=== PATIENT | male | born 1945 | race Caucasian/White ===

== ENCOUNTER 2016-03-04 23:47 | Observation (INO) | payer BC ==
[~2016-03-04] VITALS: Ht 175.3 cm; Wt 111.3 kg
[~2016-03-04 23:47] MED LIST: ALL100 PO; ASPI81TA21 PO; CNT PO; CRG3125 PO; HYDR12.56 PO; LPT/20 PO; NTRGSL/4 UT
[2016-03-05] VITALS (8 sets, daily range): BP systolic 116–177; BP diastolic 43–94; PULSE 49–63; TEMP 36.4–36.7; O2SAT 93–95; Ht 175.3 cm; Wt 111.3 kg
[2016-03-05] MEDS ORDERED: ASPIRIN 81 MG CHEW PO STA
[2016-03-05] MEDS ORDERED: SODIUM CHLORIDE 0.9% 500ML 500 ML IV STA
[2016-03-05 00:13] LABS: BASO % 1.4 %; BASO ABS # 0.09 K/uL (0-0.2); COMPLETE YES; HEMATOCRIT 48.4 % (42-52); IG% 0.2 %; LYMPH % 33.6 %; LYMPH ABS # 2.16 K/uL (1.2-3.4); MEAN CELL VOLUME 82.5 fL (80-100); MEAN CORPUSCULAR HGB CONC 36.4 g/dl (32-36); MEAN PLATELET VOLUME 11.3 fL (7.4-10.4); MONO % 8.4 %; NEUT % 52.4 %; PLATELET COUNT 200 K/uL (130-400); RED BLOOD COUNT 5.87 M/uL (4.7-6.1); WHITE BLOOD COUNT 6.43 K/uL (4.8-10.8)
[2016-03-05] MEDS: NITROGLYCERIN 0.4 MG SL PER TAB CHARGE SL PRN ×2 (00:13→00:18)
[2016-03-05 00:23] LABS: PROTHROMBIN TIME (PATIENT) 10.5 SECONDS (9.0-12.0)
[2016-03-05] MEDS ORDERED: NITROGLYCERIN OINT 2% 1GM PACKET EXT ONE (00:30)
--- NOTE | 2016-03-05 00:34 | EMERGENCY ROOM VISIT NOTE ---
History Report prepared by Carley: Sierra Mishra Under the Supervision of: Carlee KeyO. First contact with patient: 23:53 Chief Complaint: CHEST PAIN Stated Complaint: CHEST PAIN History of Present Illness The patient is a 70 year old male who presents to the Emergency Room with complaints of constant left sided chest pain for the past 3 hours. He rates his pain as a 6/10 in severity. He denies the pain radiating into his neck or back. It does not worsen with breathing, movement, or palpation. The patient denies doing anything unusual today. He rode in the car to [facility] in [place] and then came home and did some work in the barn. The patient denies shortness of breath , nausea, vomiting, abdominal pain, and any leg pain or swelling. He has a history of CO with triple bypass. He did not use any nitro today or take any aspirin. He has had a stress test within the past year. Source of History: patient Onset: 3 hours ago Position: chest (left) Symptom Intensity: 6/10 Timing: constant Modifying Factors (Worsening): other (none) Associated Symptoms: No SOB, No abdominal pain, No nausea, No vomiting Note: Pt denies leg pain or swelling. Review of Systems See HPI for pertinent positives & negatives. A total of 10 systems reviewed and were otherwise negative. Past Medical & Surgical Medical Problems: (1) CAD (coronary artery disease) (2) History of cellulitis (3) Hx MRSA infection (4) Hypertension (5) Kidney stones Surgical Problems: (1) S/P CABG (coronary artery bypass graft) Family History FH: heart disease Hypertension Social History Smoking Status: Never Smoker Alcohol Use: none Drug Use: none Marital Status: Housing Status: lives with family Occupation Status: retired Current/Historical Medications Scheduled Aspirin Enteric Coated (Ecotrin Or Generic), 81 MG PO DAILY Carvedilol (Carvedilol), 3.125 MG PO BID Levothyroxine Sodium (Levothyroxine Sodium), 50 MCG PO DAILY Losartan Potassium (Cozaar), 50 MG PO DAILY Multiple Vitamins W/ Minerals (Centrum Silver), 1 DOSE PO DAILY Nitroglycerin (Nitrostat), 0.4 MG UT PRN Omeprazole (Prilosec), 40 MG PO DAILY Pravastatin (Pravachol ), 20 MG PO DAILY Scheduled PRN Allopurinol (Allopurinol), 100 MG PO DIRECTED PRN for gout Allergies Coded Allergies: Uncoded Nonscreenable Allergen (Verified Allergy, Unknown, HIVES FROM CLOROX CLEANUP, 03/05/16) Propofol (Verified Adverse Reaction, Severe, EXTREME AGITATION, 03/05/16) Physical Exam Vital Signs Date Time Temp Pulse Resp B/P Pulse Ox O2 Delivery O2 Flow Rate FiO2 03/05/16 01:41 54 18 179/86 95 Room Air 03/05/16 00:04 Room Air 03/05/16 00:04 36.5 58 18 200/95 96 Room Air 03/05/16 00:03 63 Physical Exam GENERAL: Patient is awake, alert, somewhat anxious appearing. EYES: The conjunctivae are clear. The pupils are round and reactive. EARS, NOSE, MOUTH AND THROAT: The nose is without any evidence of any deformity. Mucous membranes are moist tongue is midline NECK: The neck is nontender and supple. RESPIRATORY: Normal respiratory effort is noted. Lungs are diminished at the bases but no definite wheezing rhonchi or rales CARDIOVASCULAR: Regular rate and rhythm noted there no murmurs rubs or gallops normal S1 normal S2 GASTROINTESTINAL: The abdomen is soft. Bowel sounds are present in all quadrants. Abdomen is nontender MUSCULOSKELETAL/EXTREMITIES: There is no evidence of gross deformity full range of motion is noted in the hips and shoulders. Trace pedal edema bilaterally. SKIN: There is no obvious evidence of any rash. There are no petechiae, pallor or cyanosis noted. NEUROLOGIC: Patient is awake alert and oriented x3 strength is symmetric patellar reflexes are 2+ bilaterally Medical Decision & Procedures ER Provider Diagnostic Interpretation: Chest x-ray as interpreted myself reveals cardiomegaly, no definite infiltrate, no free air, no significant change from 04/04/12. Repeat ECG reveals NSR at 75, no ectopy, persistence of ST abnormalities, no change from earlier tracing. Laboratory Results 03/05/16 00:01 Red Blood Count 5.87, Mean Corpuscular Volume 82.5, Mean Corpuscular Hemoglobin 30.0, Mean Corpuscular Hemoglobin Concent 36.4, Mean Platelet Volume 11.3, Neutrophils (%) (Auto) 52.4, Lymphocytes (%) (Auto) 33.6, Monocytes (%) (Auto) 8.4, Eosinophils (%) (Auto) 4.0, Basophils (%) (Auto) 1.4, Neutrophils # (Auto) 3.37, Lymphocytes # (Auto) 2.16, Monocytes # (Auto) 0.54, Eosinophils # (Auto) 0.26, Basophils # (Auto) 0.09 03/05/16 00:01 Test 03/05/16 00:01 White Blood Count 6.43 K/uL (4.8-10.8) Red Blood Count 5.87 M/uL (4.7-6.1) Hemoglobin 17.6 g/dL (14.0-18.0) Hematocrit 48.4 % (42-52) Mean Corpuscular Volume 82.5 fL (80-100) Mean Corpuscular Hemoglobin 30.0 pg (25-34) Mean Corpuscular Hemoglobin Concent 36.4 g/dl (32-36) Platelet Count 200 K/uL (130-400) Mean Platelet Volume 11.3 fL (7.4-10.4) Neutrophils (%) (Auto) 52.4 % Lymphocytes (%) (Auto) 33.6 % Monocytes (%) (Auto) 8.4 % Eosinophils (%) (Auto) 4.0 % Basophils (%) (Auto) 1.4 % Neutrophils # (Auto) 3.37 K/uL (1.4-6.5) Lymphocytes # (Auto) 2.16 K/uL (1.2-3.4) Monocytes # (Auto) 0.54 K/uL (0.11-0.59) Eosinophils # (Auto) 0.26 K/uL (0-0.5) Basophils # (Auto) 0.09 K/uL (0-0.2) RDW Standard Deviation 39.2 fL (36.4-46.3) RDW Coefficient of Variation 13.1 % (11.5-14.5) Immature Granulocyte % (Auto) 0.2 % Immature Granulocyte # (Auto) 0.01 K/uL (0.00-0.02) Prothrombin Time 10.5 SECONDS (9.0-12.0) Prothromb Time International Ratio 1.0 (0.9-1.1) Activated Partial Thromboplast Time 26.4 SECONDS (21.0-31.0) Partial Thromboplastin Ratio 1.0 Anion Gap 9.0 mmol/L (3-11) Est Creatinine Clear Calc Drug Dose 68.4 ml/min Estimated GFR () 65.0 Estimated GFR (Non- 56.1 BUN/Creatinine Ratio 16.7 (10-20) Calcium Level 8.7 mg/dl (8.5-10.1) Total Bilirubin 0.6 mg/dl (0.2-1) Direct Bilirubin 0.1 mg/dl (0-0.2) Aspartate Amino Transf (AST/SGOT) 29 U/L (15-37) Alanine Aminotransferase (ALT/SGPT) 46 U/L (12-78) Alkaline Phosphatase 55 U/L (45-117) Total Creatine Kinase 176 U/L (39-308) Creatine Kinase MB 2.4 ng/ml (0.5-3.6) Creatine Kinase MB Ratio 1.4 (0-3.0) Troponin I < 0.015 ng/ml (0-0.045) Pro-B-Type Natriuretic Peptide 116 pg/ml (0-900) Total Protein 7.2 gm/dl (6.4-8.2) Albumin 4.0 gm/dl (3.4-5.0) Lipase 146 U/L (73-393) Chemistry Specimen Hemolysis Laboratory results per my review. Medications Administered Medications (Trade) Dose Ordered Sig/Corrie Route Start Time Stop Time Status Last Admin Dose Admin Aspirin (Aspirin Chew) 324 mg NOW STAT PO 03/05/16 00:00 03/05/16 00:03 DC 03/05/16 00:14 324 MG Nitroglycerin 0.4 mg 0.4 mg Q5M PRN SL 03/05/16 00:00 03/05/16 01:24 DC 03/05/16 00:18 0.4 MG Sodium Chloride (Nss 500ml) 500 ml @ 999 mls/hr Q31M STAT IV 03/05/16 00:00 03/05/16 00:30 DC 03/05/16 00:00 999 MLS/HR Nitroglycerin (Nitroglycerin 2% Oint) 1 inch NOW ONCE EXT 03/05/16 00:30 03/05/16 00:31 DC 03/05/16 00:32 1 INCH ECG Indication: chest pain Rate (beats per minute): 58 Rhythm: sinus bradycardia Findings: LBBB, no ectopy Comparison ECG Date: 04/06/2012 Change: LBBB is new compared to previous. ED Course 2353: The patient was evaluated in room A10. A complete history and physical examination were performed. 0000: NSS 500 ml @ 999 mls/hr IV, Nitroglycerin 0.4 mg SL PRN, Aspirin 324 mg PO 0011: At this time I spoke with Dr. Canseco of cardiology. We discussed the patient's case. He recommended getting the patient pain-free and waiting for his biomarkers. 0016: I reassessed the patient and updated him on the treatment plan. He is pain -free at this time. 0030: Nitroglycerin 1 inch EXT 0044: I spoke with Dr. Trevizo. We discussed the patients results and treatment plan. The patient will be evaluated by the [facility] for further management. 0052: I reassessed the patient at this time. He is feeling better and resting comfortably. I discussed the results and treatment plan with the patient. I answered all pertaining questions that he had. He expressed understanding and verbalized agreement. Medical Decision Differential diagnosis: Etiologies such as cardiac ischemia, aortic dissection, pulmonary embolism, pneumonia, pneumothorax, musculoskeletal, infections, pericarditis, myocarditis , esophageal rupture, gastrointestinal, as well as others were entertained. Nursing notes reviewed. Additional history is obtained from the patient's family members. The patient is a 70-year-old male who presented to the emergency department for evaluation of chest pain. The patient developed left-sided chest pain while he was working in the arm. The patient's EKG showed significant abnormalities including a left bundle-branch block and ST segment abnormalities. This was compared to previous EKGs. The patient does have a left bundle branch block pattern noted on EKG from October of [address] segment changes appeared worsened at this time. The patient was treated with aspirin and nitroglycerin on reevaluation he was pain-free. His repeat EKG did not reveal any significant changes from the earlier tracing. The patient's cardiac biomarkers did not show any elevations. Because the patient's changes on his EKG I discussed this case with the on-call feed management advisor. Given the patient's biomarker findings and his pain resolution I also discussed his case with the on -call [facility] hospitalist group. At this time he will be medically managed for this condition changes or biomarker start to elevate. I discussed patient's laboratory and radiographic studies with him. He was agreeable to inpatient management at this time. Consults Time Called: 8 Consulting Physician: Dr. Canseco Returned Call: 10 At this time I spoke with Dr. Canseco of cardiology. We discussed the patient's case. He recommended getting the patient pain-free and waiting for his biomarkers. Additional Consults: Time Called: 40 Consulted Physician: Dr. Trevizo Returned Call: 43 Additional Comments: I spoke with Dr. Trevizo. We discussed the patients results and treatment plan. The patient will be evaluated by the [facility] for further management. Impression Primary Impression: Left sided chest pain Additional Impressions: Abnormal ECG LBBB (left bundle branch block) Scribe Attestation The scribe's documentation has been prepared under my direction and personally reviewed by me in its entirety. I confirm that the note above accurately reflects all work, treatment, procedures, and medical decision making performed by me. Departure Information Dispostion Being Evaluated By Hospitalist Referrals Grace Garcia, C.R.N.P (PCP) Patient Instructions My [facility] Problem Qualifiers
[2016-03-05 00:38] LABS: ALKALINE PHOSPHATASE 55 U/L (45-117); ALT/SGPT 46 U/L (12-78); AST/SGOT 29 U/L (15-37); BLOOD UREA NITROGEN 22 mg/dl (7-18); BUN/CREATININE RATIO 16.7 (10-20); CALCIUM 8.7 mg/dl (8.5-10.1); CARBON DIOXIDE 27 mmol/L (21-32); CHLORIDE 107 mmol/L (98-107); CKMB/CK RATIO 1.4 (0-3.0); GLUCOSE 128 mg/dl (70-99); SODIUM 143 mmol/L (136-145)
[2016-03-05] MEDS ORDERED: ALL100 PO (00:40)
[2016-03-05] MEDS ORDERED: LOSA50TA6 PO (00:42)
[2016-03-05] MEDS ORDERED: PRAV20TA PO (00:43)
[2016-03-05] MEDS ORDERED: MULTCHW PO (00:44)
[2016-03-05] MEDS ORDERED: OMEP40CA PO (00:45)
[2016-03-05] MEDS ORDERED: LEVO50TA6 PO (00:46)
[2016-03-05] MEDS ORDERED: NITROGLYCERIN 0.4 MG SL PER TAB CHARGE SL PRN (01:15)
[2016-03-05] MEDS ORDERED: ACETAMINOPHEN 325 MG TAB PO PRN (01:15)
[2016-03-05] MEDS ORDERED: ALLOPURINOL 100 MG TAB PO PRN (01:15)
[2016-03-05] MEDS ORDERED: MoRPHine SULFATE 2 MG/ML CARP IV PRN (01:15)
[2016-03-05] MEDS ORDERED: POLYETHYLENE (MIRALAX) 17 GM PACK PO PRN (01:15)
[2016-03-05] MEDS ORDERED: MAGNESIUM HYDROXIDE SUSP 30 ML UDC PO PRN (01:15)
[2016-03-05] MEDS ORDERED: ONDANSETRON INJ 2 MG/ML 2 ML VIAL IV PRN (01:15)
[2016-03-05] MEDS ORDERED: ALUMINUM/MAGNESIUM/SIMETH (MAALOX MAX) 30 ML UDC PO PRN (01:15)
--- NOTE | 2016-03-05 01:27 | History and Physical ---
History & Physical Date & Time of Service: Mar 05, 2016 at 01:21 Chief Complaint: Chest Pain Primary Care Physician: Grace Garica C.R.NAyalaP History of Present Illness Source: patient 70 y/o M w/Hx HTN, HPL, obese, CAD and 3V CABG 2012. Pt was working in his barn and developed moderate to severe L sided CP accompanied by diaphoresis. Denies SOB, N/V or radiation of the pain. Initial EKG revealed a LBBB which was different from a previous and there was consideration for calling a heart alert. The pts symptoms abated however and the repeat EKG when he was CP-free was unchanged. Past Medical/Surgical History Medical Problems: (1) CAD (coronary artery disease) Status: Chronic (2) History of cellulitis Status: Chronic (3) Hx MRSA infection Status: Chronic (4) Hypertension Status: Chronic (5) Kidney stones Status: Resolved Surgical Problems: (1) S/P CABG (coronary artery bypass graft) 3V 2012 Family History FH: heart disease Hypertension Social History Smoking Status: Never Smoker Drug Use: none Marital Status: Occupational Status: retired Immunizations History of Influenza Vaccine: Unknown History of Tetanus Vaccine?: Unknown History of Pneumococcal: Unknown History of Hepatitis B Vaccine: Unknown Multi-Drug Resistant Organisms History of MDRO: Yes Type of MDRO: MRSA Allergies Coded Allergies: Uncoded Nonscreenable Allergen (Verified Allergy, Unknown, HIVES FROM CLOROX CLEANUP, 03/05/16) Propofol (Verified Adverse Reaction, Severe, EXTREME AGITATION, 03/05/16) Home Medications Scheduled Aspirin Enteric Coated (Ecotrin Or Generic), 81 MG PO DAILY Carvedilol (Carvedilol), 3.125 MG PO BID Levothyroxine Sodium (Levothyroxine Sodium), 50 MCG PO DAILY Losartan Potassium (Cozaar), 50 MG PO DAILY Multiple Vitamins W/ Minerals (Centrum Silver), 1 DOSE PO DAILY Nitroglycerin (Nitrostat), 0.4 MG UT PRN Omeprazole (Prilosec), 40 MG PO DAILY Pravastatin (Pravachol ), 20 MG PO DAILY Scheduled PRN Allopurinol (Allopurinol), 100 MG PO DIRECTED PRN for gout Review of Systems Constitutional: No chills, No fever, No sweats Eyes: No eye pain, No worsening of vision ENT: No hearing loss, No nasal symptoms, No unusual epistaxis Respiratory: No cough, No sputum, No wheezing Cardiovascular: + chest pain, No PND, No orthopnea Abdomen: No nausea, No pain, No vomiting Musculoskeletal: No joint pain, No muscle pain Genitourinary - Male: No dysuria, No hematuria, No urinary frequency, No urinary urgency Neurologic: No memory loss, No paralysis Psychiatric: No depression symptoms Endocrine: No fatigue Hematologic / Lymphatic: No abnormal bleeding/bruising Integumentary: No rash Allergic / Immunologic: No environmental allergies Physical Exam Vital Signs Date Time Temp Pulse Resp B/P Pulse Ox O2 Delivery O2 Flow Rate FiO2 03/05/16 00:04 Room Air 03/05/16 00:04 36.5 58 18 200/95 96 Room Air 03/05/16 00:03 63 General Appearance: WD/WN, no apparent distress Head: normocephalic, atraumatic Eyes: normal inspection, EOMI ENT: normal ENT inspection, pharynx normal Neck: supple, no JVD Respiratory/Chest: chest non-tender, lungs clear, normal breath sounds, no respiratory distress, no accessory muscle use Cardiovascular: regular rate, rhythm, no edema, no gallop, no JVD, normal peripheral pulses, + systolic murmur Abdomen/GI: normal bowel sounds, non tender, soft Back: normal inspection Extremities/Musculoskelatal: normal inspection, no calf tenderness, normal capillary refill, no pedal edema, normal range of motion 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, no motor/sensory deficits, alert, normal mood/affect, normal reflexes, oriented x 3 Skin: normal color, warm/dry, no rash Lymphatic: no adenopathy Diagnostics Laboratory Results Results Past 24 Hours Test 03/05/16 00:01 Range/Units White Blood Count 6.43 4.8-10.8 K/uL Red Blood Count 5.87 4.7-6.1 M/uL Hemoglobin 17.6 14.0-18.0 g/dL Hematocrit 48.4 42-52 % Mean Corpuscular Volume 82.5 80-100 fL Mean Corpuscular Hemoglobin 30.0 25-34 pg Mean Corpuscular Hemoglobin Concent 36.4 32-36 g/dl Platelet Count 200 130-400 K/uL Mean Platelet Volume 11.3 7.4-10.4 fL Neutrophils (%) (Auto) 52.4 % Lymphocytes (%) (Auto) 33.6 % Monocytes (%) (Auto) 8.4 % Eosinophils (%) (Auto) 4.0 % Basophils (%) (Auto) 1.4 % Neutrophils # (Auto) 3.37 1.4-6.5 K/uL Lymphocytes # (Auto) 2.16 1.2-3.4 K/uL Monocytes # (Auto) 0.54 0.11-0.59 K/uL Eosinophils # (Auto) 0.26 0-0.5 K/uL Basophils # (Auto) 0.09 0-0.2 K/uL RDW Standard Deviation 39.2 36.4-46.3 fL RDW Coefficient of Variation 13.1 11.5-14.5 % Immature Granulocyte % (Auto) 0.2 % Immature Granulocyte # (Auto) 0.01 0.00-0.02 K/uL Prothrombin Time 10.5 9.0-12.0 SECONDS Prothromb Time International Ratio 1.0 0.9-1.1 Activated Partial Thromboplast Time 26.4 21.0-31.0 SECONDS Partial Thromboplastin Ratio 1.0 Sodium Level 143 136-145 mmol/L Potassium Level 4.0 3.5-5.1 mmol/L Chloride Level 107 98-107 mmol/L Carbon Dioxide Level 27 21-32 mmol/L Anion Gap 9.0 3-11 mmol/L Blood Urea Nitrogen 22 7-18 mg/dl Creatinine 1.30 0.60-1.40 mg/dl Est Creatinine Clear Calc Drug Dose 68.4 ml/min Estimated GFR () 65.0 Estimated GFR (Non- 56.1 BUN/Creatinine Ratio 16.7 10-20 Random Glucose 128 70-99 mg/dl Calcium Level 8.7 8.5-10.1 mg/dl Total Bilirubin 0.6 0.2-1 mg/dl Direct Bilirubin 0.1 0-0.2 mg/dl Aspartate Amino Transf (AST/SGOT) 29 15-37 U/L Alanine Aminotransferase (ALT/SGPT) 46 12-78 U/L Alkaline Phosphatase 55 45-117 U/L Total Creatine Kinase 176 39-308 U/L Creatine Kinase MB 2.4 0.5-3.6 ng/ml Creatine Kinase MB Ratio 1.4 0-3.0 Troponin I < 0.015 0-0.045 ng/ml Pro-B-Type Natriuretic Peptide 116 0-900 pg/ml Total Protein 7.2 6.4-8.2 gm/dl Albumin 4.0 3.4-5.0 gm/dl Lipase 146 73-393 U/L Chemistry Specimen Hemolysis EKG Sinus - LBBB Impression Assessment and Plan 70 y/o M w/Hx HTN, HPL, obese, CAD and 3V CABG 2012. Pt was working in his barn and developed moderate to severe L sided CP accompanied by diaphoresis. Denies SOB, N/V or radiation of the pain. Initial EKG revealed a LBBB which was different from a previous and there was consideration for calling a heart alert. The pts symptoms abated however and the repeat EKG when he was CP-free was unchanged. 1) CP - will obtain serial troponins and monitor on telemetry - consideration will be given to an emergent cath with recurrence of CP. CP will be treated with NTG or Morphine PRN. We will cont B galen, ASA and change statin to high -intensity. Keep NPO pending AM cardio eval. Echo requested due to EKG change and significant murmur on exam 2) HTN - cont Carvedilol, Losartan 3) Gout - cont Allopurinol Full code - heparin prophylaxis Total time for this admit including review of records, outpt CABG report - med rec - review of EKG, labs - discussion w/pt and ER 34 min Level of Care Telemetry Resuscitation Status FULL RESUSCITATION VTE Prophylaxis VTE Risk Assessment Done? Y/N: Yes Risk Level: Moderate Given or contraindicated: Unfractionated heparin SQ
[2016-03-05] MEDS ORDERED: IV FLUIDS COMPLETED PRN (01:30)
[2016-03-05] MEDS ORDERED: INFLUENZA VIRUS QUAD VACCINE 0.5 ML SYR IM. ONE (03:30)
[2016-03-05] MEDS ORDERED: INFLUENZA ADMINISTRATION CHARGE ONE (03:30)
[2016-03-05] MEDS ORDERED: PNEUMOCOCCAL POLYSACCHARIDES 25 MCG/0.5 ML VIAL/SYR IM. ONE (03:30)
[2016-03-05] MEDS ORDERED: PNEUMOCOCCAL ADMINISTRATION CHARGE ONE (03:30)
[2016-03-05] MEDS ORDERED: SODIUM CHLORIDE 0.9% 1000ML 1,000 ML IV SCH (03:45)
[2016-03-05] MEDS: LEVOTHYROXINE 50 MCG TAB PO SCH (06:17)
[2016-03-05] MEDS: HEPARIN SOD 5000 UNIT/0.5 ML CARP SQ SCH ×3 (06:18→22:11)
--- NOTE | 2016-03-05 07:10 | DIAGNOSTIC IMAGING REPORT ---
SINGLE VIEW CHEST CLINICAL HISTORY: Atypical chest pain. FINDINGS: An AP, portable, upright chest radiograph is compared to study dated 04/04/2012 and correlated with chest CT dated 06/29/2007. The examination is degraded by portable technique and patient rotation. The patient is status post midline sternotomy. The heart is enlarged and there is atherosclerotic calcification of the thoracic aorta. There is mild pulmonary vascular congestion. No airspace consolidation or large pleural effusion is identified. There is mild bibasilar atelectasis. No pneumothorax is seen. The bony thorax is grossly intact. IMPRESSION: Cardiomegaly with evidence of mild congestive failure. Electronically signed by: Umer Clancy M.D. 03/05/2016 7:08 AM Dictated Date/Time: 03/05/2016 7:07 AM
[2016-03-05] MEDS ORDERED: PERFLUTREN LIPID MICROSPHERE (DEFINITY) IV ONE (07:21)
[2016-03-05] MEDS: PRAVASTATIN SOD 20 MG TAB PO SCH (08:19)
[2016-03-05] MEDS: CARVEDILOL 3.125 MG TAB PO SCH ×2 (08:19→20:15)
[2016-03-05] MEDS: ASPIRIN 81 MG ECTAB PO SCH (08:19)
[2016-03-05] MEDS: LOSARTAN POTASSIUM 50 MG TAB PO SCH (08:19)
[2016-03-05] MEDS: PANTOprazole SOD 40 MG TAB PO SCH (08:19)
--- NOTE | 2016-03-05 09:55 | Cardiology Consultation ---
Cardiology Consultation Date of Consultation: Mar 05, 2016 History of Present Illness Nadir Gallo is a 70 year old male seen in cardiology consulation per the request of Dr Trevizo for the evaluation of chest pain and left bundle branch block. The patient is known to our cardiology service having last been seen by Leonard Aponte PA-C of our practice in October,. The patient states that he was in his normal state of health yesterday. After his evening meal, he felt abdominal bloating and felt uncomfortable and has expressed this to his spouse. He stated watched television for while and then went to bed. When he is laying supine in bed he noticed a focal left sharp discomfort in his left chest. This persisted for approximately 30 minutes, and then he had significant dyspepsia and multiple episodes of belching. This is happened to him in the past. It was worse. His symptoms persisted and therefore he went to the emergency department. On arrival to the emergency department he was still uncomfortable and his presenting blood pressure was 200/95 mmHg. He received 2 doses of sublingual nitroglycerin with palliation of his symptoms and improvement in his blood pressure. He ultimately was placed on a topical nitroglycerin patch which was removed due to headache. EKG performed overnight revealed sinus rhythm with left bundle branch block morphology which was a new finding compared to his prior tracing at [facility]. Per the emergency room doctor's note and admission H&P , there was debate about referring him for emergent cardiac catheterization, but his symptoms subsequently improved upon follow-up and his cardiac enzymes were negative and so therefore he was followed conservatively. Upon being notified of this consultation this morning I reviewed the patient's outpatient chart. An outpatient EKG performed at [facility] dated revealed sinus bradycardia at 47 bpm with left bundle branch block QRS duration 142 ms and resultant repolarization changes. Follow-up EKG performed revealed sinus bradycardia 52 with interventricular conduction delay, QRS duration of 122 ms. Per his outpatient chart, he has a known history of an intermittent left bundle branch block has been noted in the past. The present EKGs do not look too much different compared to this September 09 outpatient EKG with left bundle branch block. 3 my evaluation the patient in room 206. He was comfortable. He has had no additional symptoms. When he was last seen in October 2015 he had some degree of shortness of breath with exertion. An echocardiogram had been performed which revealed stable biventricular function. He has noted no recent anginal like symptoms other than what he experienced last evening, although he and his spouse agree that he has not been as physically active and is spending more time in his chair recently. History PAST MEDICAL HISTORY: ASCVD. 1.Initiation presentation to [facility] with unstable angina, 2012 -Diagnostic cardiac catheterization demonstrated significant ostial narrowing of the left main by 60% followed by a mid left main stenosis of 60%, luminal irregularities of the LAD with an 80% ostial D3 stenosis, and a large codominant LCX with luminal irregularities. LV function preserved by TTE. -Status post CABG x 3 (FLOREZ to the LAD, SVG to the diagonal, and a SVG to the OM ) and subaortic septal myomectomy by Dr. Kwong on 04/07/2012 after the initial intraoperative MIGUELITO findings. -Postoperative course complicated by intraoperative complete heart block, atrial fibrillation and atrial flutter, small left apical pneumothorax, and anemia. 2.intermittent left bundle branch block. 3.Diastolic congestive heart failure 4.Hypertension 5.Dyslipidemia. Poor tolerance to simvastatin and atorvastatin 6.GERD 7.Kidney stones 8.Paget's disease PAST SURGICAL HISTORY: 1. Cardiac catheterization 2012 as outlined above 2. Coronary artery bypass grafting, septal myectomy, 2012 SOCIAL HISTORY: Lifelong nonsmoker, lives with his spouse. Review Of Systems See above for pertinent positives & negatives. A total of 10 systems reviewed and were otherwise negative. Allergies Coded Allergies: Uncoded Nonscreenable Allergen (Verified Allergy, Unknown, HIVES FROM CLOROX CLEANUP, 03/05/16) Propofol (Verified Adverse Reaction, Severe, EXTREME AGITATION, 03/05/16) Medications Reported Home Medications Medications Dose Route/Sig Max Daily Dose Days Date Category Dose Instructions Levothyroxine Sodium 50 Mcg Tab 50 Mcg PO DAILY 90 03/05/16 Reported Prilosec (Omeprazole) 40 Mg Capcr 40 Mg PO DAILY 03/05/16 Reported Centrum Silver (Multiple Vitamins W/ Minerals) 1 Chw Chw 1 Dose PO DAILY 03/05/16 Reported Pravachol (Pravastatin Sodium) 20 Mg Tab 20 Mg PO DAILY 03/05/16 Reported Cozaar (Losartan Potassium) 50 Mg Tab 50 Mg PO DAILY 03/05/16 Reported Allopurinol 100 Mg Tab 100 Mg PO DIRECTED PRN 03/05/16 Reported Carvedilol 3.125 Mg Tab 3.125 Mg PO BID 01/13/14 Reported Nitrostat (Nitroglycerin) 0.4 Mg Tab 0.4 Mg UT PRN 10/22/13 Reported NEEDED FOIR CHEST PAIN : ONE TABLET UNDER THE TONGUE EVERY 5 MINUTES UP TO 3 DOSES. Ecotrin Or Generic (Aspirin) 81 Mg Tab 81 Mg PO DAILY 02/18/12 Reported Physical Exam Vital Signs (Last 8hrs): Last 8 Hrs Date Time Temp Pulse Resp B/P Pulse Ox O2 Delivery O2 Flow Rate FiO2 03/05/16 08:00 95 Room Air 03/05/16 04:02 36.6 52 20 134/43 95 Room Air 03/05/16 02:06 49 20 177/74 Room Air General Appearance: Alert and Oriented x3. NAD. Head: Normocephalic Atraumatic. Eyes: PERRLA, EOMI, conjunctiva and sclera clear Neck: Supple. No carotid bruits noted. No JVD. No HJD. Respiratory: Breath sounds clear to auscultation bilaterally. No w/r/r. Cardiovascular: Reg rate and rhythm. S1 and S2 noted. No murmurs, rubs, gallops. PMI non displace. Abdomen: Normal bowel sounds, soft nontender. no abdominal bruits. Extremities: No edema, no clubbing or cyanosis. distal pulses 2/4 bilaterally. Neuro: No focal deficits. Psychiatric: Normal affect. Data Last Resulted 03/05/16 00:01 Red Blood Count 5.87, Mean Corpuscular Volume 82.5, Mean Corpuscular Hemoglobin 30.0, Mean Corpuscular Hemoglobin Concent 36.4, Mean Platelet Volume 11.3, Neutrophils (%) (Auto) 52.4, Lymphocytes (%) (Auto) 33.6, Monocytes (%) (Auto) 8.4, Eosinophils (%) (Auto) 4.0, Basophils (%) (Auto) 1.4, Neutrophils # (Auto) 3.37, Lymphocytes # (Auto) 2.16, Monocytes # (Auto) 0.54, Eosinophils # (Auto) 0.26, Basophils # (Auto) 0.09 Last Resulted 03/05/16 00:01 Past 24 Hours Test 03/05/16 00:01 03/05/16 03:35 03/05/16 09:05 Range/Units Creatine Kinase MB 2.4 0.5-3.6 ng/ml Creatine Kinase MB Ratio 1.4 0-3.0 Prothromb Time International Ratio 1.0 0.9-1.1 Prothrombin Time 10.5 9.0-12.0 SECONDS Total Creatine Kinase 176 39-308 U/L Troponin I < 0.015 < 0.015 < 0.015 0-0.045 ng/ml EKG: as per [facility] Telemetry reviewed: SB. Assessment & Plan Impression: 70-year-old male 1. Epigastric, chest discomfort, and patient with known CAD, CABG 2012, last stress test was in 2014 with negative nuclear stress testing at that time. Stable echo cardiographic findings and the following 2015. 2. Known history of intermittent left bundle branch block. 3. Chronic sinus bradycardia 4. Dyslipidemia 5. Hypertension Recommendations: Due to the patient's left bundle branch block, the noninvasive test of choice for ischemia for him is a vasodilator nuclear stress test. This test is been requested and will plan to perform the resting images this afternoon, and the stress images tomorrow. Patient is to be nothing by mouth for 4 hours before the stress images with no caffeine for at least 12 hours. His topical nitroglycerin has been discontinued due to headache. Continue his other cardiac medications and trend his cardiac enzymes. Thus far the cardiac enzymes have been negative, and she feels well. He has had a resting echocardiogram this admission. The images are somewhat technically limited, but on pulmonary review I noted no LV wall motion abnormalities. Sae Vallecillo DO, FACC, FACOI Associate [employer] [facility] [place] [facility]
--- NOTE | 2016-03-05 10:11 | ECHOCARDIOGRAM REPORT ---
*NOTICE TO RECEIVING REPUBLICAN AGENCY This information is strictly Confidential and protected under [place] law. [place] law prohibits you from making any further disclosure of this information unless further disclosure is expressly permitted by the written consent of the person to whom it pertains or is authorized by law. A general authorization for the release of medical or other information is not sufficient for this purpose. Hospital accepts no responsibility if the information is made available to any other person, INCLUDING THE PATIENT. Interpretation Summary * Name: JOE BANGURA Study Date: 03/05/2016 07:03 AM BP: 134/43 mmHg * Patient Location: C.2E\S\E206\S\1 HR: 54 * : 1945 (M/d/yyyy) Gender: Male Height: 69 in * Age: 70 yrs Ethnicity: [place] Weight: 252 lb * Ordering Physician: Elio Trevizo * Referring Physician: Self, Referred * Performed By: Rafael Jaeger RCS * * Reason For Study: LBBB, Murmur * BSA: 2.3 m2 * The study was technically adequate. * Compared to prior study, changes are noted. * -- Conclusions -- * Ejection Fraction = 65-70%. * There is moderate concentric left ventricular hypertrophy. * Septal motion is consistent with post-operative state. * The left atrium is mildly dilated. * There is trace mitral regurgitation. * There is trace tricuspid regurgitation. * Diastolic dysfunction, Grade II (pseudonormalization pattern). Procedure Details * A complete two-dimensional transthoracic echocardiogram was performed (2D, M-mode, Doppler and color flow Doppler). * A contrast injection of Definity was performed to improve assessment of LV function. * Contrast was injected into an intravenous site in the right arm. * One vial of Definity ultrasound contrast was diluted in normal saline to a total volume of 10 ml. A total of '2' ml of solution was administered during imaging. * Lot # [id number] of Definity utilized for procedure. * Expiration date UN. * The attending nurse who injected the contrast agent was Chidi Luo RN. Left Ventricle * The left ventricle is normal in size. * There is no thrombus. * There is moderate concentric left ventricular hypertrophy. * Left ventricular systolic function is normal. * Ejection Fraction = 65-70%. * Septal motion is consistent with post-operative state. Right Ventricle * The right ventricle is normal size. * The right ventricular systolic function is normal as assessed by tricuspid annular plane systolic excursion (TAPSE) (normal >1.5 cm). Atria * The left atrium is mildly dilated. * Right atrial size is normal. * There is no evidence of atrial septal defect, but resolution does not allow assessment for a patent foramen ovale. Mitral Valve * The mitral valve is normal. * There is no mitral valve stenosis. * There is trace mitral regurgitation. Tricuspid Valve * The tricuspid valve is normal. * There is no tricuspid stenosis. * There is trace tricuspid regurgitation. * Doppler findings do not suggest pulmonary hypertension. Aortic Valve * The aortic valve is trileaflet. * Aortic valve sclerosis mild, without significant aortic valvular stenosis. * Aortic stenosis is absent. * Trace aortic regurgitation. Pulmonic Valve * The pulmonary valve is not well seen, but the Doppler examination is normal without significant regurgitation or stenosis. Great Vessels * The aortic root and proximal ascending aorta are normal sized. Pericardium/Pleural * There is no pericardial effusion. Great Vessels * Normal inferior vena cava diameter and respiratory variation suggests normal central venous pressure. Left Ventricular Diastolic Function * Diastolic dysfunction, Grade II (pseudonormalization pattern). MMode 2D Measurements and Calculations IVSd 1.4 cm IVSs 1.5 cm LVIDd 5.0 cm LVIDs 3.4 cm LVPWd 1.6 cm LVPWs 1.7 cm IVS/LVPW 0.84 FS 32.8 % EDV(Teich) 120.9 ml ESV(Teich) 47.2 ml EF(Teich) 61.0 % EDV(cubed) 128.7 ml ESV(cubed) 39.0 ml EF(cubed) 69.7 % % IVS thick 12.4 % % LVPW thick 3.8 % LV mass(C)d 326.5 grams LV mass(C)dI 143.3 grams/m\S\2 LV mass(C)s 209.3 grams LV mass(C)sI 91.9 grams/m\S\2 CO(Teich) 4.6 l/min CI(Teich) 2.0 l/min/m\S\2 SV(Teich) 73.7 ml SI(Teich) 32.4 ml/m\S\2 CO(cubed) 5.6 l/min CI(cubed) 2.4 l/min/m\S\2 SV(cubed) 89.6 ml SI(cubed) 39.3 ml/m\S\2 Ao root diam 3.5 cm Ao root area 9.5 cm\S\2 ACS 2.1 cm LA dimension 4.2 cm LA/Ao 1.2 LVAd ap4 34.4 cm\S\2 LVLd ap4 8.2 cm EDV(MOD-sp4) 118.0 ml LVAs ap4 19.7 cm\S\2 LVLs ap4 7.9 cm ESV(MOD-sp4) 40.0 ml EF(MOD-sp4) 66.1 % LVAd ap2 24.7 cm\S\2 LVLd ap2 7.8 cm EDV(MOD-sp2) 64.0 ml LVAs ap2 12.6 cm\S\2 LVLs ap2 5.9 cm ESV(MOD-sp2) 21.0 ml EF(MOD-sp2) 67.2 % CO(MOD-sp4) 4.8 l/min CI(MOD-sp4) 2.1 l/min/m\S\2 SV(MOD-sp4) 78.0 ml SI(MOD-sp4) 34.2 ml/m\S\2 CO(MOD-sp2) 2.7 l/min CI(MOD-sp2) 1.2 l/min/m\S\2 SV(MOD-sp2) 43.0 ml SI(MOD-sp2) 18.9 ml/m\S\2 Doppler Measurements and Calculations MV E max joby 80.1 cm/sec MV A max joby 82.3 cm/sec MV E/A 0.97 MV P1/2t max joby 87.8 cm/sec MV P1/2t 70.3 msec MVA(P1/2t) 3.1 cm\S\2 MV dec slope 366.2 cm/sec\S\2 MV dec time 0.25 sec Ao V2 max 172.5 cm/sec Ao max PG 11.9 mmHg Ao max PG (full) 5.6 mmHg LV V1 max PG 6.3 mmHg LV V1 max 125.4 cm/sec PA V2 max 80.3 cm/sec PA max PG 2.6 mmHg TR max joby 260.8 cm/sec
--- NOTE | 2016-03-05 13:02 | Hospitalist Progress Note ---
Hospitalist Progress Note Date of Service Mar 05, 2016. Subjective H&P and Cardio consult noted. Pt reports no further chest pain or dyspnea. His family at the bedside notes that he's been having exertional dyspnea the past few weeks as well as frequent belching. They are concerned because he had similar symptoms prior to requiring CABG. Objective Vital Signs Date Time Temp Pulse Resp B/P Pulse Ox O2 Delivery O2 Flow Rate FiO2 03/05/16 12:00 Room Air 03/05/16 11:31 36.4 57 20 166/94 94 Room Air 03/05/16 10:20 36.6 63 20 116/60 94 Room Air 03/05/16 08:00 95 Room Air 03/05/16 04:02 36.6 52 20 134/43 95 Room Air 03/05/16 02:06 49 20 177/74 Room Air 03/05/16 01:41 54 18 179/86 95 Room Air 03/05/16 00:04 Room Air 03/05/16 00:04 36.5 58 18 200/95 96 Room Air 03/05/16 00:03 63 Laboratory Results Last 24 Hours Test 03/05/16 00:01 03/05/16 03:35 03/05/16 09:05 White Blood Count 6.43 K/uL Red Blood Count 5.87 M/uL Hemoglobin 17.6 g/dL Hematocrit 48.4 % Mean Corpuscular Volume 82.5 fL Mean Corpuscular Hemoglobin 30.0 pg Mean Corpuscular Hemoglobin Concent 36.4 g/dl Platelet Count 200 K/uL Mean Platelet Volume 11.3 fL Neutrophils (%) (Auto) 52.4 % Lymphocytes (%) (Auto) 33.6 % Monocytes (%) (Auto) 8.4 % Eosinophils (%) (Auto) 4.0 % Basophils (%) (Auto) 1.4 % Neutrophils # (Auto) 3.37 K/uL Lymphocytes # (Auto) 2.16 K/uL Monocytes # (Auto) 0.54 K/uL Eosinophils # (Auto) 0.26 K/uL Basophils # (Auto) 0.09 K/uL RDW Standard Deviation 39.2 fL RDW Coefficient of Variation 13.1 % Immature Granulocyte % (Auto) 0.2 % Immature Granulocyte # (Auto) 0.01 K/uL Prothrombin Time 10.5 SECONDS Prothromb Time International Ratio 1.0 Activated Partial Thromboplast Time 26.4 SECONDS Partial Thromboplastin Ratio 1.0 Sodium Level 143 mmol/L Potassium Level 4.0 mmol/L Chloride Level 107 mmol/L Carbon Dioxide Level 27 mmol/L Anion Gap 9.0 mmol/L Blood Urea Nitrogen 22 mg/dl Creatinine 1.30 mg/dl Est Creatinine Clear Calc Drug Dose 68.4 ml/min Estimated GFR () 65.0 Estimated GFR (Non- 56.1 BUN/Creatinine Ratio 16.7 Random Glucose 128 mg/dl Calcium Level 8.7 mg/dl Total Bilirubin 0.6 mg/dl Direct Bilirubin 0.1 mg/dl Aspartate Amino Transf (AST/SGOT) 29 U/L Alanine Aminotransferase (ALT/SGPT) 46 U/L Alkaline Phosphatase 55 U/L Total Creatine Kinase 176 U/L Creatine Kinase MB 2.4 ng/ml Creatine Kinase MB Ratio 1.4 Troponin I < 0.015 ng/ml < 0.015 ng/ml < 0.015 ng/ml Pro-B-Type Natriuretic Peptide 116 pg/ml Total Protein 7.2 gm/dl Albumin 4.0 gm/dl Lipase 146 U/L Chemistry Specimen Hemolysis Hepatitis C Antibody Screen NEG Assessment and Plan (1) Chest pain Assessment & Plan: Await results of stress test. Cardio is on board. (2) LBBB (left bundle branch block) Assessment & Plan: Has been seen on previous EKGs and no significant change per Cardio. (3) CAD (coronary artery disease) Assessment & Plan: Cont. ASA, statin, BB (4) GERD (gastroesophageal reflux disease) Assessment & Plan: Continue PPI (5) Hypertension Assessment & Plan: Cont. carvedilol and losartan (6) Hypothyroidism Assessment & Plan: Cont. Synthroid
[2016-03-06 00:01] VITALS: O2SAT 95
[2016-03-06 03:53] VITALS: BP 150/58; PULSE 53; TEMP 36.4; O2SAT 96
[2016-03-06] MEDS: LEVOTHYROXINE 50 MCG TAB PO SCH (05:43)
[2016-03-06] MEDS: HEPARIN SOD 5000 UNIT/0.5 ML CARP SQ SCH ×2 (05:46→14:00)
[2016-03-06 08:21] VITALS: BP 153/71; PULSE 63; TEMP 36.6; O2SAT 95
[2016-03-06] MEDS: LOSARTAN POTASSIUM 50 MG TAB PO SCH (08:23)
[2016-03-06] MEDS: PRAVASTATIN SOD 20 MG TAB PO SCH (08:23)
[2016-03-06] MEDS: PANTOprazole SOD 40 MG TAB PO SCH (08:23)
[2016-03-06] MEDS: CARVEDILOL 3.125 MG TAB PO SCH (08:23)
[2016-03-06] MEDS: ASPIRIN 81 MG ECTAB PO SCH (08:24)
[2016-03-06] MEDS ORDERED: REGADENOSON 0.4 MG/5 ML SYR ONE (09:54)
[2016-03-06 12:25] VITALS: BP 169/83; PULSE 52; TEMP 36.6; O2SAT 97
--- NOTE | 2016-03-06 13:14 | Discharge Instructions ---
Discharge Instructions Admission Reason for Admission: Left Sided Chest Pain Discharge Discharge Diagnosis / Problem: Non-cardiac chest pain, Gastroesophageal reflux disease Discharge Goals Goal(s): Decrease discomfort Activity Recommendations Activity Limitations: resume your previous activity . Instructions / Follow-Up Instructions / Follow-Up Follow up with PCP within a week. Follow up with Cardiology within 1-4 weeks. Current Hospital Diet Patient's current hospital diet: AHA Diet (Heart Healthy) Discharge Diet Recommended Diet: AHA Diet (Heart Healthy) Procedures Procedures Performed: Nuclear stress test - no evidence for ischemia Pending Studies Studies pending at discharge: no Medical Emergencies . Who to Call and When: Medical Emergencies: If at any time you feel your situation is an emergency, please call 911 immediately. . Non-Emergent Contact Non-Emergency issues call your: Primary Care Provider Call Non-Emergent contact if: your pain is worsening, you have any medication questions . . "Provider Documentation" section prepared by Blair Deluca. VTE Core Measure Inpt VTE Proph given/why not?: Unfractionated heparin SQ
--- NOTE | 2016-03-06 14:03 | Cardiology Follow-Up ---
Subjective General Date of Service: Mar 06, 2016. Chief Complaint: follow up chest pain Pt evaluation today including: conversation w/ patient, conversation w/ family , physical exam History of Present Illness The patient is a 70 year old male seen in follow up. Pt felt well overnight and so far today. He was seen prior to / during/ and post pharm nuclear stress today. Telemetry reveals SR and SB with LBBB, and IVCD. There was one isolated 7 beat run of irregular rhythm on am of 03/05 the appears to be AF or complex ectopy. Allergies Coded Allergies: Uncoded Nonscreenable Allergen (Verified Allergy, Unknown, HIVES FROM CLOROX CLEANUP, 03/05/16) Propofol (Verified Adverse Reaction, Severe, EXTREME AGITATION, 03/05/16) Social History Smoking Status: Never Smoker Hx Tobacco Use In Past Year?: No Hx Alcohol Use - Type And Amou: No Hx Substance Use - Type And Am: No Problem List Medical Problems: (1) Abnormal ECG Status: Acute (2) LBBB (left bundle branch block) Status: Chronic (3) Left sided chest pain Status: Acute Physical Exam Vital Signs Last Vital Signs Documentation Date Time Temp Pulse Resp B/P Pulse Ox O2 Delivery O2 Flow Rate FiO2 03/06/16 12:25 36.6 52 13 169/83 97 Room Air Physical Exam Constitutional: Level of Distress: NAD Neck: supple Lungs: Auscultation: no wheezing, no rales/crackles, no rhonchi Cardiovascular: Heart Auscultation: RRR, no murmurs, no rubs Abdomen: Bowel Sounds: normal Extremities: no cyanosis, no edema Neurologic: Gait & Station: pertinent finding (no focal deficits ) Assessment and Plan Assessment and Plan Impression: 70 year old male with h/o CAD, prior CABG, presented with atypical chest pain, intermittent (chronic) LBBB -Lexiscan stress was negative for ischemia 2. HTN, BP above goal Plan: Stable for discharge. Increase losartan to 100 mg daily. No change in treatment for 7 beat run of AF. At baseline HR is 49-50 bpm at rest on current coreg dose. I have requested outpt follow up visit with Mr Aponte within 1-4 weeks or sooner if necessary if pt has a change in condition. Shirin Vallecillo DO
--- NOTE | 2016-03-06 14:24 | MYOCARDIAL PERFUSION SCAN ---
DATE OF STUDY: 03/05/2016, 03/06/2016. ORDERING PROVIDER: Sae Vallecillo D.O. INDICATION: Chest discomfort, epigastric discomfort. PAST CARDIAC HISTORY: History of coronary artery bypass grafting and intermittent left bundle branch block. The patient presented this admission with chest discomfort. TECHNIQUE: For the stress portion of the study 22.5 mCi of technetium-99m Cardiolite was injected at 11:30 a.m. on 03/06/2016. Thirty minutes following the injection, imaging of the heart was performed in multiple projections. For the rest portion of the study 22.9 mCi of Technetium 99m Cardiolite was injected at 1530 p.m. on 03/05/2016. One hour following the injection, imaging of the heart was performed in the same imaging planes. STRESS TEST DATA: The patient received 0.4 mg of IV Lexiscan by intravenous infusion. The resting heart rate of 48 beats per minute mechelle to a maximum heart rate of 83 beats per minute. This value represents 54% of the maximal age predicted heart rate. The resting blood pressure of 155/107 mechelle to a maximum blood pressure of 174/80. The stress test was terminated having completed the pharmacologic protocol EKG DATA: Resting EKG revealed sinus bradycardia at 49 beats per minute with left bundle branch block and resultant repolarization abnormalities. The stress EKG is inconclusive for ischemia due to the presence of underlying left bundle branch block. However, the baseline repolarization changes with inferior and lateral T-wave changes were more prominent on the stress EKG. No arrhythmias were noted on the stress EKG. The patient experienced flushing and some mild chest tightness with administration of Lexiscan which resulted in the post-pharmacologic stress recovery interval. The heart rate response was normal for pharmacologic stress. Baseline hypertension was noted with normal blood pressure response to pharmacologic stress. RAW IMAGES: The study was of good technical quality. Review of the raw data in a rotational Cine format reveals no significant abnormalities with the exception of mild attenuation adjacent to the inferior wall. STRESS IMAGES: Stress SPECT images reveal a small sized perfusion defect of mild intensity encompassing the basal portion of the inferior wall with normal perfusion to the remaining myocardial segments. The resting SPECT images were unchanged. Gated SPECT images reveal normal myocardial thickening with mild septal dyskinesis consistent with left bundle branch block. The left ventricular chamber size was normal on both the stress and rest images. There is no evidence of transient ischemic dilatation. The calculated left ventricular ejection fraction was 49%, but it appears better than that on qualitative assessment. CONCLUSION: The Lexiscan nuclear cardiac stress test is negative for inducible ischemia. There is a small sized fixed perfusion defect limited to the basal inferior wall which in light of normal gating in this area is likely consistent with a small attenuation artifact rather than underlying myocardial scar. The septal wall motion was mildly abnormal consistent with underlying conduction delay. The left ventricular ejection fraction was at the lower limit of normal with a calculated LVEF of 49%. The ejection fraction was normal by qualitative visual inspection. The EKG portion of the test is inconclusive due to the presence of underlying left bundle branch block. MTDD
[2016-03-06] MEDS ORDERED: OMEP40CA PO (14:25)
[2016-03-06] MEDS ORDERED: LOSA1TAB38 PO (14:25)
[2016-03-06 14:33] VITALS: BP 169/83; PULSE 52; TEMP 36.6; O2SAT 97
--- NOTE | 2016-03-06 19:11 | Discharge Summary ---
Discharge Summary Admission Date: Mar 05, 2016 at 01:21 Discharge Date: Mar 06, 2016 Discharge Disposition: Home Principal Diagnosis: Non-cardiac chest pain, likely related to GERD Problems/Secondary Diagnoses: (1) LBBB (left bundle branch block) Status: Chronic Immunizations: Have You Had Influenza Vaccine: Unknown History of Tetanus Vaccine?: Unknown History of Pneumococcal: Unknown History of Hepatitis B Vaccine: Unknown Procedures: Nuclear stress test: no ischemia Consultations: Cardiology, Dr. Vallecillo Medication Reconciliation New Medications: Losartan Potassium (Cozaar) 100 Mg Tab 1 TAB PO DAILY for 30 Days, #30 TAB 5 Refills Changed Medications: Omeprazole (Prilosec) 40 Mg Capcr 40 MG PO BID for 30 Days, #60 CAP (Changed from: DAILY) Continued Medications: Allopurinol (Allopurinol) 100 Mg Tab 100 MG PO DIRECTED PRN for gout Aspirin Enteric Coated (Ecotrin Or Generic) 81 Mg Tab 81 MG PO DAILY, TAB Carvedilol (Carvedilol) 3.125 Mg Tab 3.125 MG PO BID, #68 Levothyroxine Sodium (Levothyroxine Sodium) 50 Mcg Tab 50 MCG PO DAILY for 90 Days, #90 TAB 3 Refills Multiple Vitamins W/ Minerals (Centrum Silver) 1 Chw Chw 1 DOSE PO DAILY Nitroglycerin (Nitrostat) 0.4 Mg Tab 0.4 MG UT PRN, BTL NEEDED FOIR CHEST PAIN : ONE TABLET UNDER THE TONGUE EVERY 5 MINUTES UP TO 3 DOSES. Pravastatin (Pravachol ) 20 Mg Tab 20 MG PO DAILY, TAB Discontinued Medications: Losartan Potassium (Cozaar) 50 Mg Tab 50 MG PO DAILY, TAB Discharge Exam Physical Exam: General Appearance: no apparent distress Eyes: sclerae normal Neck: no JVD Respiratory/Chest: lungs clear, no respiratory distress Cardiovascular: regular rate, rhythm, no murmur Abdomen / GI: non tender, soft Extremities: no pedal edema Neurologic/Psychiatric: no motor/sensory deficits, alert, oriented x 3 Skin: normal color, warm/dry Hospital Course (1) Chest pain Status: Acute (2) LBBB (left bundle branch block) Status: Chronic (3) CAD (coronary artery disease) Status: Chronic (4) GERD (gastroesophageal reflux disease) Status: Chronic (5) Hypertension Status: Chronic (6) Hypothyroidism Status: Chronic (1) Chest pain Patient was seen by Cardiology and underwent Nuclear stress testing, which was read as negative for ischemia. At this point, his symptoms seem more likely to be GI in nature. I increased his PPI to twice daily and counseled him on avoid caffeine, alcohol, eating before bed. (2) LBBB (left bundle branch block) There initially was some concern that this was new in the ED. However, review of old records indicate that he has intermittently had LBBB. (3) CAD (coronary artery disease) Stable. He is to continue ASA, statin, beta galen. (4) GERD (gastroesophageal reflux disease) PPI dose was increased to twice daily. He was advised to seek outpatient GI consultation if his symptoms persist while on a BID PPI. (5) Hypertension This remained controlled with carvedilol and losartan, which were continued at discharge. This includes examination of the patient, discharge planning, medication reconciliation, and communication with other providers. Discharge Instructions Please refer to the electronic Patient Visit Report (Discharge Instructions) for additional information. Follow-Up Follow up with PCP within one week. Follow up with Cardiology within 3-4 weeks. Additional Copies To Grace Garcia C.R.N.P
[2016-03-07] MEDS ORDERED: LOSARTAN POTASSIUM 50 MG TAB PO SCH (09:00)
== END 2016-03-06 15:11 | disposition home or self-care (01) ==
LOC: ENRESERVTM → ENRESERVDT → C.EDB 23:48 → C.2E 03-05 01:21
PROVIDERS: ADMIT Internal Medicine; ATTEND Hospitalist
DX: R07.89 Other chest pain (principal); K21.9 Gastro-esophageal reflux disease without esophagitis; I10 Essential (primary) hypertension; I44.7 Left bundle-branch block, unspecified; E03.9 Hypothyroidism, unspecified; E78.5 Hyperlipidemia, unspecified; I25.10 Atherosclerotic heart disease of native coronary artery without angina pectoris; Z79.82 Long term (current) use of aspirin; Z87.442 Personal history of urinary calculi; Z86.14 Personal history of Methicillin resistant Staphylococcus aureus infection; Z82.49 Family history of ischemic heart disease and other diseases of the circulatory system; R94.31 Abnormal electrocardiogram [ECG] [EKG]

== ENCOUNTER → 2016-03-19 | Outpatient (CLI) | payer BC ==
[~2016-03-19] MED LIST changes: -CNT PO; -HYDR12.56 PO; +LEVO50TA6 PO; +LOSA1TAB38 PO; -LPT/20 PO; +MULTCHW PO; +OMEP40CA PO; +PRAV20TA PO
--- NOTE | 2016-03-19 11:08 | DIAGNOSTIC IMAGING REPORT ---
ULTRASOUND RIGHT UPPER QUADRANT ABDOMEN CLINICAL HISTORY: Right upper quadrant abdominal pain.. COMPARISON STUDY: Abdominal CT dated 02/18/2012. TECHNIQUE: Real-time, grayscale, and color flow sonography of the right upper quadrant of the abdomen was performed. Images are reviewed in the transverse and longitudinal planes. FINDINGS: Liver: The liver is enlarged and demonstrates heterogeneously increased echotexture consistent with hepatic steatosis. Fatty sparing is seen adjacent to gallbladder fossa. There is no intrahepatic biliary ductal dilatation. The main portal vein is patent. Gallbladder: The gallbladder is normal in appearance. No gallstones are identified. There is no gallbladder wall thickening or pericholecystic fluid. A sonographic Marie's sign is reportedly absent. The common bile duct measures up to 0.4 cm in diameter. Pancreas: Visualized portions of the pancreatic head and body are normal in appearance. Right kidney: Survey images of the right kidney demonstrate mild cortical atrophy. There is no hydronephrosis. A subcentimeter cyst is incidentally noted in the lower pole. Ascites: None. IMPRESSION: 1. No acute sonographic abnormality is identified in the right upper quadrant. No gallstones are seen. 2. Hepatomegaly and hepatic steatosis. Electronically signed by: Umer Clancy M.D. 03/19/2016 11:07 AM Dictated Date/Time: 03/19/2016 11:06 AM
== END | disposition home or self-care (01) ==
LOC: C.ULTR 10:12
PROVIDERS: ATTEND Internal Medicine Cardiovascular Disease
DX: R10.84 Generalized abdominal pain (principal); R16.0 Hepatomegaly, not elsewhere classified; K76.0 Fatty (change of) liver, not elsewhere classified

== ENCOUNTER → 2016-06-11 | Outpatient (CLI) | payer BC ==
[2016-06-11 13:04] LABS: ALT/SGPT 40 U/L (12-78); AST/SGOT 24 U/L (15-37); BLOOD UREA NITROGEN 23 mg/dl (7-18); BUN/CREATININE RATIO 18.8 (10-20); CALCIUM 8.4 mg/dl (8.5-10.1); CARBON DIOXIDE 28 mmol/L (21-32); CHLORIDE 106 mmol/L (98-107); GLUCOSE 111 mg/dl (70-99); POTASSIUM 4.1 mmol/L (3.5-5.1); SODIUM 139 mmol/L (136-145)
[2016-06-11 13:17] LABS: ALB/GLOB RATIO 1.3 (0.9-2); ALKALINE PHOSPHATASE 62 U/L (45-117); CHOLESTEROL 147 mg/dl (0-200); CHOLESTEROL/HDL RATIO 3.7; HDL CHOLESTEROL 40 mg/dl; LDL CHOLESTEROL CALCULATED 92 mg/dl; TRIGLYCERIDES 75 mg/dl (0-150); VERY LOW DENSITY LIPOPROT CALC 15 mg/dl
== END | disposition home or self-care (01) ==
LOC: C.LABPVFM 09:19
PROVIDERS: ATTEND Nurse Practitioner
DX: E03.9 Hypothyroidism, unspecified (principal); E78.5 Hyperlipidemia, unspecified; I10 Essential (primary) hypertension

== ENCOUNTER → 2016-07-22 | Outpatient (CLI) | payer BC ==
--- NOTE | 2016-07-22 10:23 | DIAGNOSTIC IMAGING REPORT ---
LEFT KNEE 2 VIEWS CLINICAL HISTORY: Fall 2 months ago. Left knee pain. FINDINGS: AP and crosstable lateral views of left knee are obtained. No prior studies are available for comparison at the time of dictation. The skeletal structures are well mineralized for age. No fracture is seen. There is mild tricompartmental degenerative joint space narrowing, greatest at the patellofemoral articulation. There are tiny patellar enthesophytes. Chondrocalcinosis is seen in the medial and lateral compartments. No joint effusion is identified. Prepatellar soft tissue swelling is noted. A surgical clip is suggested in the distal thigh posteriorly. IMPRESSION: 1. Prepatellar soft tissue swelling with no acute bony abnormality identified in the left knee. 2. Mild degenerative change and chondrocalcinosis as above. Electronically signed by: Umer Clancy M.D. 07/22/2016 10:21 AM Dictated Date/Time: 07/22/2016 10:20 AM
== END | disposition home or self-care (01) ==
LOC: C.RADPV 10:00
PROVIDERS: ATTEND Family Medicine
DX: S83.90XA Sprain of unspecified site of unspecified knee, initial encounter (principal); X58.XXXA Exposure to other specified factors, initial encounter; M79.9 Soft tissue disorder, unspecified

== ENCOUNTER → 2016-12-29 | Outpatient (CLI) | payer BC | END | disposition home or self-care (01) | LOC: C.LABPVFM 09:19 | PROVIDERS: ATTEND Urology | DX: N20.0 Calculus of kidney (principal) ==

== ENCOUNTER 2017-05-18 16:39 | Emergency (ER) | payer BC ==
[~2017-05-18] VITALS: Ht 172.7 cm; Wt 118.5 kg
[~2017-05-18 16:39] MED LIST changes: +ASPI-319 PO; -ASPI81TA21 PO
[2017-05-18 17:01] VITALS: TEMP 36.4; Ht 172.7 cm; Wt 118.5 kg
[2017-05-18] MEDS ORDERED: LOSA100T65 PO (17:42)
[2017-05-18] MEDS ORDERED: OMEP40CA41 PO (17:42)
[2017-05-18] MEDS ORDERED: NRV/10 PO (17:42)
[2017-05-18] MEDS ORDERED: SPR25 PO (17:42)
[2017-05-18] MEDS ORDERED: ACETAMINOPHEN 500 MG TAB PO STA (18:05)
--- NOTE | 2017-05-18 18:54 | EMERGENCY ROOM VISIT NOTE ---
ED Visit Note First contact with patient: 17:06 CHIEF COMPLAINT: Left arm pain, struck by a cow HISTORY OF PRESENT ILLNESS: This 71-year-old male patient presents to the emergency department, ambulatory, complaining of pain in the left forearm, left shoulder, and right ribs after being struck by a cow on the right side. The patient states a cow pushed him with the counts head against the patient's right ribs into a fence, when he struck a pole with his left forearm. This occurred approximately 3:00 PM. The patient is not complaining of pain in the left anterior shoulder with difficulty flexing the joints at the shoulder, as well as the left forearm. He has not taken any medication for his symptoms. There is limited strength of the left upper extremity due to the injury. There is no increased pain with deep breathing or coughing. Attempting to sit up from a lying position is painful. Denies shortness of breath or coughing up blood. The patient rates the pain as sharp and 8/10. No previous fractures to the ribs. The patient denies any other injury. The patient denies any abdominal pain, nausea, or vomiting. The patient did not fall. He is not on blood thinners. REVIEW OF SYSTEMS: A 6 system review of systems was completed with positives and pertinent negatives listed in the HPI. ALLERGIES: Propofol PMH: Hypertension, hyperlipidemia, heart disease, hypothyroidism SOCIAL HISTORY: The patient lives locally with family. He denies drug, alcohol , tobacco use. PHYSICAL EXAM: VITALS: Vitals are noted on the nurse's note and reviewed by myself. Vital signs stable. GENERAL: This is a 71-year-old obese white male, in no acute distress, nondiaphoretic, well-developed well-nourished. SKIN: No rashes, open wounds, erythema, or edema noted. Skin is pink, warm, dry , without diaphoresis or cyanosis. NECK: No tenderness to palpation over the cervical spine. Supple, no lymphadenopathy noted. LUNGS: Clear to auscultation and breath sounds equal, no wheezes, rales, or rhonchi. HEART: Heart sounds are regular without murmurs, ectopy, gallop, or rub. CHEST: The right chest wall is tender to palpation over the #6-8 ribs but there is no fracture crepitus and no ecchymosis. There is no tachypnea or dyspnea. ABDOMEN: Positive bowel sounds x 4. Normal tympanic percussion. Soft, nontender, without masses or organomegaly. No guarding or rebound tenderness. MUSCULOSKELETAL: There is no deformity in the contour of the left shoulder and there are no iesha deformities noted. There is negative sulcus sign. There is tenderness over the anterior aspect of the humeral head. The patient's range of motion is limited in flexion and extension due to pain. Supraspinatus strength 5 /5. There is no clavicle tenderness. There is tenderness with significant swelling over the proximal forearm, overlying the proximal ulna. No erythema or obvious abscess/cellulitis. No tenderness of the humerus, elbow, wrist, or hand. Strainer Tender strength 5/5. Radial pulse 2+. NEURO: Patient was alert and oriented to person place and time. RADIOLOGY: R RIBS UNILATERAL WITH PA CHEST CLINICAL HISTORY: Right rib pain following trauma. COMPARISON STUDY: Chest radiograph March 05, 2016. FINDINGS: There is no pneumothorax or pleural fusion. There is moderate cardiomegaly. Median sternotomy wires are noted. No acute right rib fractures are identified. IMPRESSION: No pneumothorax. No acute right rib fractures identified. Electronically signed by: Rohith De La Garza M.D. 05/18/2017 7:07 PM Dictated Date/Time: 05/18/2017 7:04 PM LEFT FOREARM 2 VIEWS HISTORY: left forearm pain/swelling COMPARISON: None. FINDINGS: There is no fracture or dislocation. Focal soft tissue swelling within the proximal forearm. No radiopaque foreign bodies. IMPRESSION: No fractures. Electronically signed by: Joseph Murcia M.D. 05/18/2017 7:04 PM Dictated Date/Time: 05/18/2017 7:02 PM L SHOULDER MIN 2 VIEWS ROUTINE CLINICAL HISTORY: Left shoulder pain following injury. COMPARISON: None FINDINGS: Alignment of the left shoulder is anatomic. There is no acute fracture. 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 IMPRESSION: No acute fracture or dislocation of the left shoulder. Electronically signed by: Rohith De La Garza M.D. 05/18/2017 7:04 PM Dictated Date/Time: 05/18/2017 7:02 PM EMERGENCY DEPARTMENT COURSE: I examined the patient. X-rays of the chest with right rib detail, as well as x-rays of the left shoulder and forearm were reviewed by myself and radiologist and show no acute fracture or dislocation. The patient was given 1 g Tylenol p.o. at his request. I did offer stronger analgesics, the patient declines. The patient was given an ice pack. I discussed the findings with the patient and his family members at bedside. I did recommend orthopedic follow-up, and the patient and his family members were in agreement. The patient will be placed in an arm sling for comfort, but was encouraged to remove his arm from the sling and move the joints around to keep them loose for the next week or until he is feeling better. All questions were answered to the patient and his family member satisfaction. Discharge instructions reviewed, the patient was discharged home in good condition. The patient was seen and evaluated by Dr. Rob. He was in agreement with the assessment and plan. Blood Pressure Screening: Patient was found to have a slightly elevated blood pressure due to circumstances. I do not believe that the patient requires hypertension monitoring. I attest that I have personally reviewed the patient's current medication list. Etiologies such as soft tissue injury, fracture, dislocation, contusion, neurovascular compromise, compartment syndrome, pneumothorax, hemothorax, as well as others were entertained. DIAGNOSIS: Right rib contusion, left forearm contusion, left shoulder contusion The chart was completed utilizing [employer] Speech voice recognition software. Grammatical errors, random word insertions, pronoun errors, and incomplete sentences are an occasional consequence of this system due to software limitations, ambient noise, and hardware issues. Any formal questions or concerns about the content, text, or information contained within the body of this dictation should be directly addressed to the provider for clarification. Problem List Medical Problems: (1) CAD (coronary artery disease) Status: Chronic (2) GERD (gastroesophageal reflux disease) Status: Chronic (3) History of cellulitis Status: Chronic (4) Hx MRSA infection Status: Chronic (5) Hypertension Status: Chronic (6) Hypothyroidism Status: Chronic (7) Kidney stones Status: Resolved (8) LBBB (left bundle branch block) Status: Chronic Surgical Problems: (1) S/P CABG (coronary artery bypass graft) Status: Resolved Current/Historical Medications Scheduled Allopurinol (Allopurinol), 100 MG PO DAILY Amlodipine Besylate (Amlodipine Besylate), 10 MG PO DAILY Aspirin Enteric Coated (Ecotrin Or Generic), 81 MG PO DAILY Carvedilol (Carvedilol), 3.125 MG PO BID Levothyroxine Sodium (Levothyroxine Sodium), 50 MCG PO DAILY Losartan Potassium (Cozaar), 100 MG PO DAILY Multiple Vitamins W/ Minerals (Centrum Silver), 1 DOSE PO DAILY Nitroglycerin (Nitrostat), 0.4 MG UT PRN Omeprazole (Prilosec), 40 MG PO DAILY Pravastatin (Pravachol ), 20 MG PO DAILY Spironolactone (Spironolactone), 25 MG PO Q2D Allergies Coded Allergies: Uncoded Nonscreenable Allergen (Verified Allergy, Unknown, HIVES FROM [employer] CLEANUP, 03/05/16) Propofol (Verified Adverse Reaction, Severe, EXTREME AGITATION, 03/05/16) Vital Signs Date Time Temp Pulse Resp B/P (MAP) Pulse Ox O2 Delivery O2 Flow Rate FiO2 05/18/17 19:39 78 20 134/88 96 05/18/17 17:01 36.4 90 17 162/81 95 Room Air Medications Administered Medications (Trade) Dose Ordered Sig/Corrie Route Start Time Stop Time Status Last Admin Dose Admin Acetaminophen (Tylenol Tab) 1,000 mg NOW STAT PO 05/18/17 18:05 05/18/17 18:06 DC 05/18/17 18:44 1,000 MG Departure Information Impression Primary Impression: Contusion of left forearm, initial encounter Additional Impressions: Contusion of left shoulder, initial encounter Rib pain on right side Struck by cow, initial encounter Dispostion Home / Self-Care Condition GOOD Referrals Grace Garcia, C.R.N.P (PCP) Vimal Valencia D.O. Patient Instructions ED Contusion Rib, ED Contusion Upper Ext, [facility] Additional Instructions You have been treated in the Emergency Department for Rib contusion, as well as upper extremity contusion. For pain control, you can use the following [id number] medicines (if >12 yo): Ibuprofen(Motrin, Advil) may be used for fever or pain. Use 600mg every six hours as needed. Take with food. Avoid using more than 2400mg in a 24 hour period. Do not use 2400mg per day for more than three consecutive days without physician direction. Prolonged inappropriate use can lead to stomach upset or ulcers. Do not take this medication unless approved by your PCP/zipper measurer. (AND/OR) Acetaminophen(Tylenol) may be used for fever or pain. Use 1000mg every six hours as needed. Avoid using more than 3000mg in a 24 hour period. If this is an acute injury, ice can be applied to the area of pain for the first 3 days to help decrease pain and inflammation. After the first 3 days, a heating pad can be used over the area for continued soothing relief. To minimize your discomfort, you can hug a pillow while coughing or sneezing. Additionally, you should continue to force yourself to take nice, deep breaths. Full expansion of the lungs is necessary to prevent the accumulation of fluid in the lung tissue and development of pneumonia. Wear the arm sling for comfort. You should remove your arm several times per day to move and stretch the joints and muscles. You should schedule a follow-up appointment in 2-3 days with your Primary Care Provider or orthopedic surgeon for further evaluation and treatment of your injuries. Return to the Emergency Department if your current symptoms worsen despite treatment course outlined above, or if you develop any of the following symptoms : intractable pain despite aforementioned treatment course, development of a wet cough, bloody cough, fever, chills, or increased shortness of breath. Problem Qualifiers
--- NOTE | 2017-05-18 19:05 | DIAGNOSTIC IMAGING REPORT ---
L SHOULDER MIN 2 VIEWS ROUTINE CLINICAL HISTORY: Left shoulder pain following injury. COMPARISON: None FINDINGS: Alignment of the left shoulder is anatomic. There is no acute fracture. 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 IMPRESSION: No acute fracture or dislocation of the left shoulder. Electronically signed by: Rohith De La Garza M.D. 05/18/2017 7:04 PM Dictated Date/Time: 05/18/2017 7:02 PM
--- NOTE | 2017-05-18 19:06 | DIAGNOSTIC IMAGING REPORT ---
LEFT FOREARM 2 VIEWS HISTORY: left forearm pain/swelling COMPARISON: None. FINDINGS: There is no fracture or dislocation. Focal soft tissue swelling within the proximal forearm. No radiopaque foreign bodies. IMPRESSION: No fractures. Electronically signed by: Joseph Murcia M.D. 05/18/2017 7:04 PM Dictated Date/Time: 05/18/2017 7:02 PM
--- NOTE | 2017-05-18 19:08 | DIAGNOSTIC IMAGING REPORT ---
R RIBS UNILATERAL WITH PA CHEST CLINICAL HISTORY: Right rib pain following trauma. COMPARISON STUDY: Chest radiograph March 05, 2016. FINDINGS: There is no pneumothorax or pleural fusion. There is moderate cardiomegaly. Median sternotomy wires are noted. No acute right rib fractures are identified. IMPRESSION: No pneumothorax. No acute right rib fractures identified. Electronically signed by: Rohith De La Garza M.D. 05/18/2017 7:07 PM Dictated Date/Time: 05/18/2017 7:04 PM
[2017-05-18 19:39] VITALS: BP 134/88; PULSE 78; O2SAT 96
== END 2017-05-18 19:35 | disposition home or self-care (01) ==
LOC: C.EDB 16:40 → C.EDD 19:35
DX: S20.211A Contusion of right front wall of thorax, initial encounter (principal); S50.12XA Contusion of left forearm, initial encounter; S40.012A Contusion of left shoulder, initial encounter; W55.22XA Struck by cow, initial encounter; W22.09XA Striking against other stationary object, initial encounter; I11.9 Hypertensive heart disease without heart failure; Z79.82 Long term (current) use of aspirin; I44.7 Left bundle-branch block, unspecified; I25.10 Atherosclerotic heart disease of native coronary artery without angina pectoris; E66.9 Obesity, unspecified; E03.9 Hypothyroidism, unspecified; E78.5 Hyperlipidemia, unspecified; K21.9 Gastro-esophageal reflux disease without esophagitis; Z95.1 Presence of aortocoronary bypass graft; Z91.048 Other nonmedicinal substance allergy status; Z88.8 Allergy status to other drugs, medicaments and biological substances

== ENCOUNTER → 2017-05-24 | Outpatient (CLI) | payer BC ==
[~2017-05-24] MED LIST changes: +LOSA100T65 PO; -LOSA1TAB38 PO; +NRV/10 PO; -OMEP40CA PO; +OMEP40CA41 PO; +SPR25 PO
[2017-05-24 14:02] LABS: BLOOD UREA NITROGEN 17 mg/dl (7-18); CALCIUM 8.7 mg/dl (8.5-10.1); CARBON DIOXIDE 24 mmol/L (21-32); CREATININE 1.16 mg/dl (0.60-1.40); GLUCOSE 128 mg/dl (70-99); SODIUM 137 mmol/L (136-145)
== END | disposition home or self-care (01) ==
LOC: C.LABPVFM 09:23
PROVIDERS: ATTEND Internal Medicine Cardiovascular Disease
DX: I10 Essential (primary) hypertension (principal); I25.10 Atherosclerotic heart disease of native coronary artery without angina pectoris

== ENCOUNTER → 2017-06-04 | Outpatient (CLI) | payer BC | END | disposition home or self-care (01) | LOC: C.RDSM 16:27 | PROVIDERS: ATTEND Orthopaedic Surgery | DX: M25.512 Pain in left shoulder (principal) ==

== ENCOUNTER → 2017-06-10 | Outpatient (CLI) | payer BC ==
--- NOTE | 2017-06-10 08:53 | DIAGNOSTIC IMAGING REPORT ---
MRI OF THE LEFT SHOULDER CLINICAL HISTORY: Left shoulder pain. COMPARISON STUDY: Radiographs of the left shoulder dated 06/04/2017. TECHNIQUE: MRI of the left shoulder was performed utilizing various T1 and T2 weighted sequences in the axial, sagittal, coronal planes. IV contrast was not administered for this examination. The examination is modestly degraded by motion artifact. FINDINGS: Rotator cuff: There is full-thickness rupture of the supraspinatus and infraspinatus tendons with superior subluxation of the humeral head. There is at least 4.5 cm of retraction of the supraspinous tendon. There is tendinopathy and partial thickness tearing of the subscapularis tendon. Some of the fibers remain intact. The teres minor is preserved. There is subacromial and subdeltoid bursal fluid. Productive degenerative change is seen at the acromioclavicular joint. Biceps tendon: There is tendinopathy of the long head of the biceps tendon with high-grade partial-thickness tearing. Some fibers remain intact, and the tendon is located within the bicipital groove the anchor is maintained. Labrum: There is maceration with circumferential tearing of the glenoid labrum. Shoulder joint: There is a small joint effusion. The articular cartilage over the glenoid appears maintained. There is mild thinning of the articular cartilage of the humeral head. Arthritic change with mild marrow edema and subchondral cyst formation is seen in the greater tuberosity of the humeral head. There is no MRI evidence of fracture. Musculature and soft tissues: There is edema within the bodies of the supraspinatus and intraspinous muscles. No muscular atrophy is identified. IMPRESSION: 1. There has been rupture with musculotendinous retraction involving the supraspinatus and intraspinous tendons and superior subluxation of the humeral head. 2. There is edema within the bodies of the supraspinatus and infraspinatus muscles. No atrophy is seen. 3. There is partial thickness tearing of the subscapularis tendon. Some fibers remain intact. 4. There is tendinopathy with high-grade partial thickness tearing of the long head of the biceps tendon. Some fibers remain intact and the tendon is located in the bicipital groove. 5. There is maceration with circumferential tearing of the glenoid labrum. 6. Joint effusion. 7. No fracture is identified. Electronically signed by: Umer Clancy M.D. 06/10/2017 8:20 AM Dictated Date/Time: 06/10/2017 8:13 AM
== END | disposition home or self-care (01) ==
LOC: C.MRI 07:14
PROVIDERS: ATTEND Orthopaedic Surgery
DX: M75.122 Complete rotator cuff tear or rupture of left shoulder, not specified as traumatic (principal)

== ENCOUNTER → 2017-06-23 | Outpatient (CLI) | payer BC ==
[~2017-06-23] MED LIST changes: +ALLO100T PO; +SPIR25TA PO; +albuterol inhaler INH
[2017-06-23 12:05] LABS: HEMATOCRIT 46.1 % (42-52); HEMOGLOBIN 16.7 g/dL (14.0-18.0); MEAN CELL VOLUME 81.6 fL (80-100); MEAN CORPUSCULAR HEMOGLOBIN 29.6 pg (25-34); MEAN CORPUSCULAR HGB CONC 36.2 g/dl (32-36); MEAN PLATELET VOLUME 10.5 fL (7.4-10.4); PLATELET COUNT 208 K/uL (130-400); RED CELL DISTRIBUTION WIDTH CV 13.4 % (11.5-14.5); RED CELL DISTRIBUTION WIDTH SD 39.7 fL (36.4-46.3); WHITE BLOOD COUNT 5.61 K/uL (4.8-10.8)
[2017-06-23 12:34] LABS: BLOOD UREA NITROGEN 19 mg/dl (7-18); CALCIUM 8.8 mg/dl (8.5-10.1); CARBON DIOXIDE 28 mmol/L (21-32); CREATININE 1.05 mg/dl (0.60-1.40); GLUCOSE 92 mg/dl (70-99); SODIUM 137 mmol/L (136-145)
== END | disposition home or self-care (01) ==
LOC: C.LAB1850 11:13
PROVIDERS: ATTEND Orthopaedic Surgery
DX: Z01.818 Encounter for other preprocedural examination (principal); S46.022D Laceration of muscle(s) and tendon(s) of the rotator cuff of left shoulder, subsequent encounter; X58.XXXD Exposure to other specified factors, subsequent encounter

== ENCOUNTER 2017-07-01 05:26 | Observation (INO) | payer BC ==
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
[2017-06-25 10:33] VITALS: BMI 37.0
[2017-07-01] VITALS (8 sets, daily range): BP systolic 134–168; BP diastolic 65–84; PULSE 55–80; TEMP 36.3–36.8; O2SAT 92–96; Ht 175.3 cm; Wt 114.5 kg
[~2017-07-01] VITALS: Ht 175.3 cm; Wt 114.5 kg
[~2017-07-01 05:26] MED LIST changes: -ALL100 PO; -CRG3125 PO; -SPR25 PO; -albuterol inhaler INH
[2017-07-01] MEDS ORDERED: LACTATED RINGER'S 1000ML 1,000 ML IV SCH ×2 (06:00→07:25)
[2017-07-01] MEDS ORDERED: CEFAZOLIN 3000MG IV PUSH 22.5 ML IV SCH (06:00)
[2017-07-01] MEDS ORDERED: albuterol inhaler INH (06:27)
[2017-07-01] MEDS ORDERED: ONDANSETRON INJ 2 MG/ML 2 ML VIAL IV PRN ×2 (06:30→11:15)
[2017-07-01] MEDS ORDERED: EpHEDrine SULFATE INJ 50 MG/ML AMP IV PRN (06:30)
[2017-07-01] MEDS ORDERED: PHENYLEPHRINE 100MCG/ML 5ML SYR IV PRN (06:30)
[2017-07-01] MEDS ORDERED: FENTANYL CITRATE INJ 50 MCG/1 ML 2 ML VIAL IV PRN (06:30)
[2017-07-01] MEDS ORDERED: ATROPINE SULFATE 0.1 MG/ML 5ML SYR IV PRN (06:30)
[2017-07-01] MEDS ORDERED: LABETALOL HCL IV 5 MG/ML 20ML IV PRN (06:30)
[2017-07-01] MEDS ORDERED: HYDROmorphone INJ 0.5 MG/0.5 ML SYR IV PRN (06:30)
--- NOTE | 2017-07-01 06:47 | History & Physical Bridge Note ---
H&P Re-Evaluation Bridge Note: I have examined the patient, reviewed the History & Physical and in the interval since the performance of the History & Physical I have noted the following changes of clinical significance: No changes noted
[2017-07-01] MEDS ORDERED: VANCOMYCIN IV 2,000 MG in SODIUM CHLORIDE 0.9% 500ML 500 ML IV SCH (07:00)
[2017-07-01] MEDS ORDERED: VANCOMYCIN CONSULT ACTIVE PRN (07:30)
[2017-07-01] MEDS ORDERED: EpINEphrine HCL INJ 1 MG/ML 1ML SYRINGE ONE ×3 (08:49→09:45)
--- NOTE | 2017-07-01 10:38 | [facility] Post Operative Brief Note ---
Immediate Operative Summary Operative Date July 01, 2017. Pre-Operative Diagnosis L shoulder rotator cuff tear, biceps tendon tear, subacromial spur Post-Operative Diagnosis Same Procedure(s) Performed Left shoulder arthroscopic rotator cuff repair, subacromial spur resection (decompression) Surgeon Marceilno Harris MD Emergency Response Coordinator Surgeon(s) Padilla Aleman PA-C Estimated Blood Loss 10 Findings Consistent with Post-Op Diagnosis Fluids (cc crystalloids) 1300 cc Specimens None Drains None Anesthesia Type General Regional Complication(s) none Disposition Accompanied Pt To Recover: no Disposition: Recovery Room / PACU
[2017-07-01] MEDS ORDERED: OXYCODONE HCL IR 5 MG TAB (IMMEDIATE RELEASE) PO PRN (11:15)
[2017-07-01] MEDS ORDERED: ALBUTEROL HFA INHALER 8.5 GM INH PRN (11:15)
[2017-07-01] MEDS ORDERED: DiphenhydrAMINE HCL 50 MG/ML VIAL IV PRN (11:15)
[2017-07-01] MEDS ORDERED: NITROGLYCERIN 0.4 MG SL PER TAB CHARGE UT PRN (11:15)
[2017-07-01] MEDS ORDERED: CEFAZOLIN IV 3,000 MG in DEXTROSE 5% 50ML 50 ML IV SCH (11:15)
[2017-07-01] MEDS ORDERED: MAGNESIUM HYDROXIDE SUSP 30 ML UDC PO PRN (11:15)
[2017-07-01] MEDS ORDERED: METOCLOPRAMIDE HCL INJ 5 MG/ML 2 ML VIAL IV PRN (11:15)
[2017-07-01] MEDS ORDERED: MoRPHine SULFATE 4 MG/ML 1 ML CARP\\VIAL IV PRN (11:15)
[2017-07-01] MEDS ORDERED: ALUMINUM/MAGNESIUM/SIMETH (MAALOX MAX) 30 ML UDC PO PRN (11:15)
--- NOTE | 2017-07-01 11:15 | [facility] Operative Report ---
Operative Report Operative Date July 01, 2017. Pre-Operative Diagnosis L shoulder rotator cuff tear, biceps tendon tear, subacromial spur Post-Operative Diagnosis Same Procedure(s) Performed Left shoulder arthroscopic rotator cuff repair, subacromial spur resection (decompression) Surgeon Marcelino Harris MD Senior Payroll Manager Surgeon(s) Padilla Aleman PA-C Estimated Blood Loss 10 Fluids 1300 cc Specimens None Drains None Anesthesia Type General Regional Complication(s) none Disposition no Recovery Room / PACU Description of Procedure I was present during entire procedure and performed wound closure. Please see Dr. Harris procedure note for specifics. I attest to the content of the Intraoperative Record and any orders documented therein. Any exceptions are noted below.
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
[2017-07-01] MEDS ORDERED: IV FLUIDS COMPLETED PRN (11:45)
--- NOTE | 2017-07-01 12:19 | Anesthesiology Progress Note ---
Anesthesia Post Op Note Date & Time July 01, 2017 at 12:15 Vital Signs Pain Intensity: 0 Vital Signs Past 12 Hours Date Time Temp Pulse Resp B/P (MAP) Pulse Ox O2 Delivery O2 Flow Rate FiO2 07/01/17 12:05 36.1 77 12 145/69 92 Nasal Cannula 4 07/01/17 11:55 79 15 138/67 92 Nasal Cannula 4 07/01/17 11:45 80 24 145/78 93 Nasal Cannula 4 07/01/17 11:35 75 16 149/76 94 Oxymask 10 07/01/17 11:25 70 18 136/71 95 Oxymask 10 07/01/17 11:19 36.5 76 22 132/69 94 Oxymask 10 07/01/17 05:45 36.5 55 20 168/84 (112) 96 Room Air Notes Mental Status: alert / awake / arousable, participated in evaluation Pt Amnestic to Procedure: Yes Nausea / Vomiting: adequately controlled Pain: adequately controlled Airway Patency, RR, SpO2: stable & adequate BP & HR: stable & adequate Hydration State: stable & adequate Anesthetic Complications: no major complications apparent Pt doing well without complaints. Had EKG changes in the OR where he went in and out of AIVR and NSR for about 15 minutes right after induction. He had stayed in NSR since. Hemodynamically stable throughout intraop period. 5mg of IV labetalol given once for hypertension with systolic in 200s, which brought his BP down to 140s afterward. 12 lead EKG in PACU was done without significant changes from his pre op EKG. Pt is awake, without pain. Denies CP or SOB. Pt is ready for d/c from PACU. Discussed case with Dr. Mendez and his PA and pt will be monitored overnight. VSS throughout post op period.
--- NOTE | 2017-07-01 12:44 | Discharge Instructions ---
Discharge Instructions Date of Service July 01, 2017. Admission Reason for Admission: Left Shoulder Rotator Cuff Tear Discharge Discharge Diagnosis / Problem: Left shoulder rotator cuff tear Discharge Goals Goal(s): Decrease discomfort, Improve function, Increase independence Activity Recommendations Activity Limitations: as noted below Lifting Limitations: until after follow-up appointment Exercise/Sports Limitations: until after follow-up appointment May Resume Sexual Activity: after follow-up appointment Shower/Bathe: tomorrow, keep incision dry Driving or Machine Use: No driving until cleared by orthpedic specialist Weightbearing Status: Left non-weightbearing (Upper extremity (no more than a coffee cup for approx 3 montsh)) . Instructions / Follow-Up Instructions / Follow-Up Post-operative Instructions Dear Patient and Family/Friends, Before you are discharged from the hospital, it is important to know what to expect when you get home after surgery. To that end, we have created this sheet of discharge instructions which covers many commonly asked questions. Make sure you go through this sheet in its entirety with your nurse before you are discharged. Please note that we will go over the specifics of your surgery and recovery when you return for your first post-operative visit. Sincerely, Dr. Harris Pain Expect to be in a fair amount of pain after surgery. Remember, our goal is not to eliminate your pain, but to make it tolerable. It is a good idea to stay ahead of your pain by taking the medications you were prescribed once you get home. Typically, the pain starts improving 3-7 days after surgery. You should start weaning off the narcotic pain medication (oxycodone, hydrocodone, hydromorphone, morphine) as soon as your pain improves. Please call our office if your pain is not adequately controlled. Ice Ice your operative site at least 5 times a day for 15-30 minutes at a time. Make sure you have a thin cloth between the ice or cooling unit and your skin to prevent aragon bite. This is especially important if you received a nerve block. Continue icing your operative site for the first 5-7 days after surgery , then as needed. Diet/Nausea/Vomiting Start by drinking clear liquids and eating crackers. If you can tolerate this, then you may resume your normal diet. If you feel nauseated or vomit, take Zofran/ondansetron (if prescribed). Please call our office if you have intractable nausea or vomiting, or, if after hours, you may go to the Emergency Room for help. Constipation Constipation is a common side effect of narcotic pain medication. If you have not had a bowel movement within 2 days after surgery, we recommend purchasing an over the counter laxative such as Milk of Magnesia, Dulcolax, or Miralax from a local pharmacy, and taking it as instructed. Call our clinic if any questions. Slings and Braces If you were placed in a sling or brace, it must be worn at all times, including sleep. You may remove your sling or brace for physical therapy, home exercises , and showering. The length of time you will be in your brace and range of motion restrictions depends on what surgery you had; these details will be reviewed at your first post-operative appointment. Nerve block The anesthesia team sometimes places a nerve block to help with post-operative pain control. This results in significant numbness and inability to move the extremity. The nerve block usually wears off in 8-12 hours, but sometimes can last up to 24 hours. Please call our office if you are still unable to move your extremity after 24 hours, unless you received a pain pump to take home. Nerve blocks typically wear off quickly, so start taking pain medication as soon as you start feeling soreness near your surgical site. Weight bearing and Range of Motion. Do not bear any weight through your operative extremity immediately after surgery. If you had upper extremity surgery, do not lift anything with that arm. If you are in a knee brace, keep it locked in place until your follow-up. We will discuss your weight bearing, range of motion, and lifting restrictions in detail at your first post-operative appointment. Continuous Passive Motion (CPM) Machine If you were prescribed a CPM machine, it will start after your first post- operative appointment, at which time we will give you instructions on the range of motion settings and duration of treatment Physical therapy You will be given a prescription for physical therapy or occupational therapy at your first post-operative appointment. Typically, patients start therapy within 1 week of surgery Wound care and showering We will inspect your wound at your first post-operative visit, and may do a dressing change at that time. Most patients will be in a water-proof dressing that is removed 14 days after surgery. It is normal to see some dried blood on the dressing. Do not remove your dressing, paper strips or sutures yourself unless you are given permission. Showering is allowed the day after surgery. Do not scrub or remove any dressings. The wound should not be submerged underwater (i.e. in a bathtub or pool) until 4 weeks after surgery JHOANA stockings If you were given white stockings, these are to be worn at all times except to shower (on both legs) for the first 2 weeks after surgery. Driving You may not drive while taking narcotic pain medication or while in a cast, splint, sling or brace. You, the patient, need to make the final determination about when you are safe to drive, however, the earliest you may consider driving after surgery is below: Hand/Wrist/Elbow Surgery: 3 days Shoulder Surgery: 2 weeks Hip,/Knee/Ankle Surgery: 4 weeks Fracture repair: 6 weeks Return to Work Your return to work depends on what surgery was done and what type of work you do. Please bring any paperwork your employer needs completed to your first post -operative visit. Also, bring a description of your job duties, as this helps us to understand what risks you may face at work. Travel Avoid long distance travel (greater than 1 hour) in airplanes and cars for the first 6 weeks after surgery. If you must travel, you need to have a Doppler ultrasound done before you travel to rule out a blood clot in your legs. Follow-up You should have a follow-up appointment already scheduled 1-2 days after surgery. If not, please contact our office to make this appointment before you leave the hospital. When to call the office It is normal to have swelling and bruising in the limb that was operated on. This will improve with time. It is also normal to have fevers for the first 2 days after surgery. Reasons you should call your doctor include: Uncontrolled pain; Nausea, vomiting, or constipation that does not improve with medication; Fevers over 101.5, chills, sweats; Drainage or bleeding from the wound; Foul odor; Spreading areas of redness; Any other concerns Current Hospital Diet Patient's current hospital diet: Regular Diet Discharge Diet Recommended Diet: Regular Diet Procedures Procedures Performed: Left shoulder arthroscopic rotator cuff repair, subacromial spur resection (decompression) Pending Studies Studies pending at discharge: no Medical Emergencies . Who to Call and When: Medical Emergencies: If at any time you feel your situation is an emergency, please call 911 immediately. . Non-Emergent Contact Non-Emergency issues call your: Primary Care Provider Call Non-Emergent contact if: you have a fever, temperature is above 101.5, your pain is not controlled, your pain is worsening, wound has increased drainage, you have any medication questions . "Provider Documentation" section prepared by Padilla Aleman. . [place] Drug Monitoring Program Search Results: patient reviewed within database, no issues identified, see additional documentation
[2017-07-01] MEDS: ACETAMINOPHEN 500 MG TAB PO SCH ×2 (14:37→21:07)
[2017-07-01] MEDS: D5W AND 1/2NSS + 20MEQ KCL 1,000 ML IV SCH ×2 (14:37→23:17)
[2017-07-01] MEDS ORDERED: CEFAZOLIN IV 3,000 MG in SYRINGE 0 ML IV ONE (16:00)
[2017-07-01] MEDS ORDERED: KETOROLAC TROMETHAMINE 15 MG/ML VIAL IV. SCH (16:00)
--- NOTE | 2017-07-01 19:22 | Progress Note ---
Subjective Date of Service: July 01, 2017. Subjective Pt evaluation today including: conversation w/ patient, conversation w/ family , physical exam, chart review, lab review, review of inpatient medication list generally feeling well post rotator cuff surgery no pain although arm still mostly numb from nerve block no cp no sob no other sx later called that he's having difficulty voiding and ~750ml in bladder after void Problem List Medical Problems: (1) Abnormal ECG Status: Acute (2) Contusion of left forearm, initial encounter Status: Acute (3) Contusion of left shoulder, initial encounter Status: Acute (4) LBBB (left bundle branch block) Status: Chronic (5) Left sided chest pain Status: Acute (6) Rib pain on right side Status: Acute (7) Struck by cow, initial encounter Status: Acute Review of Systems all other ROS otherwise negative except for as above Objective Vital Signs Date Time Temp Pulse Resp B/P (MAP) Pulse Ox O2 Delivery O2 Flow Rate FiO2 07/01/17 16:09 36.8 80 18 162/76 (104) 92 Room Air 07/01/17 15:10 36.6 80 18 163/76 (105) 96 Nasal Cannula 3.5 07/01/17 14:08 36.3 80 19 148/71 (96) 96 Nasal Cannula 4.0 07/01/17 13:29 73 19 146/73 (97) 94 Nasal Cannula 4.0 07/01/17 13:05 36.5 80 16 150/70 (96) 94 Nasal Cannula 4.0 07/01/17 13:05 94 Nasal Cannula 4.0 07/01/17 13:05 94 Nasal Cannula 4.0 07/01/17 12:45 80 18 141/71 94 Nasal Cannula 4 07/01/17 12:30 80 17 151/75 93 Nasal Cannula 4 07/01/17 12:15 71 14 141/74 92 Nasal Cannula 4 07/01/17 12:05 36.1 77 12 145/69 92 Nasal Cannula 4 07/01/17 11:55 79 15 138/67 92 Nasal Cannula 4 07/01/17 11:45 80 24 145/78 93 Nasal Cannula 4 07/01/17 11:35 75 16 149/76 94 Oxymask 10 07/01/17 11:25 70 18 136/71 95 Oxymask 10 07/01/17 11:19 36.5 76 22 132/69 94 Oxymask 10 07/01/17 05:45 36.5 55 20 168/84 (112) 96 Room Air Physical Exam General Appearance: no apparent distress Eyes: EOMI ENT: hearing grossly normal Neck: trachea midline Respiratory/Chest: no respiratory distress, no accessory muscle use Extremities: normal range of motion (L arm sling, dressed) Neurologic/Psychiatric: distribution associate II-XII nml as tested, alert, normal mood/affect Assessment and Plan s/p rotator cuff repair -per ortho dvt proph -per ortho htn -reasonable control given circumstances, follow and continue current meds urinary retention -highly likely BPH given age - acutely flomax and straight cath prn. will have to have him follow sx more closely over assisted to determine if ongoing treatment is needed CAD -stable/asymptomatic, continue home meds reactive airway disease -stable, asymptomatic, continue home meds
[2017-07-01] MEDS ORDERED: TAMSULOSIN HCL 0.4 MG CAP PO ONE (19:30)
[2017-07-01] MEDS ORDERED: PRAVASTATIN SOD 20 MG TAB PO SCH (21:00)
[2017-07-01] MEDS: DOCUSATE SODIUM 100 MG CAP PO SCH (21:07)
[2017-07-02 04:11] VITALS: BP 142/69; PULSE 65; TEMP 36.8; O2SAT 95
[2017-07-02] MEDS: ACETAMINOPHEN 500 MG TAB PO SCH (05:23)
[2017-07-02 05:56] LABS: CREATININE 1.21 mg/dl (0.60-1.40); POTASSIUM 4.3 mmol/L (3.5-5.1)
[2017-07-02 06:00] LABS: HEMATOCRIT 44.2 % (42-52); HEMOGLOBIN 16.1 g/dL (14.0-18.0); MEAN CELL VOLUME 81.5 fL (80-100); MEAN CORPUSCULAR HEMOGLOBIN 29.7 pg (25-34); MEAN CORPUSCULAR HGB CONC 36.4 g/dl (32-36); MEAN PLATELET VOLUME 10.5 fL (7.4-10.4); PLATELET COUNT 250 K/uL (130-400); RED CELL DISTRIBUTION WIDTH CV 13.2 % (11.5-14.5); RED CELL DISTRIBUTION WIDTH SD 39.5 fL (36.4-46.3); WHITE BLOOD COUNT 10.02 K/uL (4.8-10.8)
[2017-07-02] MEDS ORDERED: VANCOMYCIN IV 0 MG in SODIUM CHLORIDE 0.9% 250ML 250 ML IV SCH (06:00)
[2017-07-02] MEDS ORDERED: LEVOTHYROXINE 50 MCG TAB PO SCH (06:00)
[2017-07-02] MEDS ORDERED: CEFAZOLIN IV 3,000 MG in DEXTROSE 5% 50ML 50 ML IV SCH (06:00)
[2017-07-02 07:29] VITALS: O2SAT 95
[2017-07-02 07:37] VITALS: BP 186/88; PULSE 70; TEMP 36.5; O2SAT 95
[2017-07-02] MEDS: DOCUSATE SODIUM 100 MG CAP PO SCH (07:39)
[2017-07-02 07:46] VITALS: BP 186/88; PULSE 70; TEMP 36.5; O2SAT 95
--- NOTE | 2017-07-02 07:57 | Anesthesiology Progress Note ---
Anesthesia Post Op Note Date & Time July 02, 2017 at 07:57 Vital Signs Pain Intensity: 4.0 Vital Signs Past 12 Hours Date Time Temp Pulse Resp B/P (MAP) Pulse Ox O2 Delivery O2 Flow Rate FiO2 07/02/17 07:46 36.5 70 18 95 Room Air 07/02/17 07:37 36.5 70 18 186/88 (120) 95 Room Air 07/02/17 07:29 95 Room Air 07/02/17 04:11 36.8 65 16 142/69 (93) 95 Room Air 07/01/17 23:05 36.8 71 18 134/65 (88) 96 Room Air 07/01/17 20:00 Room Air Notes Mental Status: alert / awake / arousable, participated in evaluation Pt Amnestic to Procedure: Yes Nausea / Vomiting: adequately controlled Pain: adequately controlled Airway Patency, RR, SpO2: stable & adequate BP & HR: stable & adequate Hydration State: stable & adequate Neuraxial Anesthesia: was administered, sensory block resolved Anesthetic Complications: no major complications apparent
[2017-07-02] MEDS ORDERED: LOSARTAN POTASSIUM 50 MG TAB PO SCH (09:00)
[2017-07-02] MEDS ORDERED: AMLODIPINE BESYLATE 5 MG TAB PO SCH (09:00)
[2017-07-02] MEDS ORDERED: SPIRONOLACTONE 25 MG TAB PO SCH (09:00)
[2017-07-02] MEDS ORDERED: PANTOprazole SOD 40 MG TAB PO SCH (09:00)
[2017-07-02] MEDS ORDERED: CEROVITE ADV FORMULA TAB PO SCH (09:00)
[2017-07-02] MEDS ORDERED: ALLOPURINOL 100 MG TAB PO SCH (09:00)
[2017-07-02] MEDS ORDERED: ASPIRIN 81 MG ECTAB PO SCH (09:00)
[2017-07-02] MEDS ORDERED: TAMSULOSIN HCL 0.4 MG CAP PO SCH (21:00)
[2017-07-02] MEDS ORDERED: CeleBREX 200 MG CAP PO SCH (21:00)
--- NOTE | 2017-07-06 08:06 | Discharge Summary ---
Orthopedic Discharge Summary Admission Date/Reason July 01, 2017 at 11:27 Left Shoulder Rotator Cuff Tear. Discharge Date/Disposition July 02, 2017 Home (outpatient PT at [facility] in [place], [place]) Diagnosis Principal Diagnosis: Left shoulder massive rotator cuff tear; subacromial spur; long head of biceps tear; labral tear Procedure(s) Performed Left shoulder arthroscopic rotator cuff repair of massive, retracted tear; subacromial spur resection and decompression; labral debridement Consultations Medicine consult due to EKG changes during procedure Medication Reconciliation See H&P for home meds Patient was given Rx's at preop visit for: 1. Oxycodone 5mg tab 1-2 tabs po q 4-6 hrs prn pain #30 2. Diclofenac Sodium 75 mg tabs 1 tab PO BID x 30 days with 1 refill. Patient purchased additional meds OTC for pain control and DVT prophylaxis 1. Extra Strength Tylenol 500 mg 2 tabs po q 8 hrs prn pain x 30 days 2. EC Aspirin 81 mg 1 tabs po daily for 30 days. Admission Physical Exam As per Admitting History & Physical. Hospital Course Patient was initially to be outpatient but due to EKG changes during surgery was admitted to med/surg floor for 23 hr observation. Patient had urinary retention that was treated with Straight Cath and FloMax by medicine service and was advised to f/u with his PCP after discharge. Otherwise stay was uneventful. Pain well controlled with PO meds and post op EKG was unremarkable for any acute cardiac process. Patient was discharged and attended outpatient PT at [facility], will f/u protocol for massive RTC repair and cont PT at [facility] in [place], [place]. He has f/u scheduled in our office at 2 wk post op interval. Discharge Instructions Please refer to the electronic Patient Visit Report (Discharge Instructions) for additional information.
== END 2017-07-02 08:00 | disposition home or self-care (01) ==
LOC: C.OR 05:26 → C.3E 11:27 → EDBEDREQ 12:05 → ENRESERV 12:38
PROVIDERS: ADMIT Orthopaedic Surgery; ATTEND Orthopaedic Surgery
DX: S46.012A Strain of muscle(s) and tendon(s) of the rotator cuff of left shoulder, initial encounter (principal); S46.102A Unspecified injury of muscle, fascia and tendon of long head of biceps, left arm, initial encounter; M75.82 Other shoulder lesions, left shoulder; S43.492A Other sprain of left shoulder joint, initial encounter; W55.89XA Other contact with other mammals, initial encounter; J45.909 Unspecified asthma, uncomplicated; I25.10 Atherosclerotic heart disease of native coronary artery without angina pectoris; I10 Essential (primary) hypertension; E03.9 Hypothyroidism, unspecified; E78.5 Hyperlipidemia, unspecified; E66.9 Obesity, unspecified; Z68.37 Body mass index [BMI] 37.0-37.9, adult; Z95.1 Presence of aortocoronary bypass graft; Z98.42 Cataract extraction status, left eye; Z98.41 Cataract extraction status, right eye; I25.2 Old myocardial infarction; Z79.899 Other long term (current) drug therapy; Z79.82 Long term (current) use of aspirin; Z82.49 Family history of ischemic heart disease and other diseases of the circulatory system; Z80.9 Family history of malignant neoplasm, unspecified

== ENCOUNTER 2021-03-11 01:57 | Observation (INO) ==
[2021-03-11] MEDS ORDERED: ONDANSETRON INJ 2 MG/ML 2 ML VIAL IV STA (02:23)
[2021-03-11] MEDS ORDERED: SODIUM CHLORIDE 0.9% 1000ML 1,000 ML IV STA (02:23)
[2021-03-11] MEDS ORDERED: MoRPHine SULFATE 4 MG/ML 1 ML CARP\\VIAL IV STA (02:23)
[2021-03-11] MEDS ORDERED: SODIUM CHLORIDE 0.9% 500 ML IV STA (02:23)
--- NOTE | 2021-03-11 02:29 | Emergency Department Note ---
Impression & Plan Hydronephrosis with renal and ureteral calculus obstruction, Intractable right lower quadrant abdominal pain Admit to the [facility] service ED Provider Note NAME: JOE BANGURA AGE: 75 SEX: M ARRIVES VIA: Walk-In INFORMANT: Patient his ED PROVIDER(S): Deanna Felipe DO CHIEF COMPLAINT: Right flank pain and nausea PLAN: Disposition: Admit to the [facility] service Condition: Fair MEDICAL DECISION MAKING: This is a 75-year-old male patient with a known right-sided mid ureter stone who presents to the emergency department with worsening recurrent pain and nausea. The patient never got his pain medications picked up from pharmacy and when he called urology to make the follow-up appointment they told him he could not be seen until 03/17/2021. The patient had a KUB performed to look for the location of this right-sided stone. He had laboratory studies drawn and IV lock initiated. The patient was given IV morphine and Zofran along with some IV fluids. The case was discussed with the [facility] [employer] Hospital[facility] for admission to the hospital. Triage Nursing notes reviewed and agree with them. Additional history obtained from the is at the bedside Prior medical records reviewed from his recent ER visit when I saw him 2 days ago. Vital Signs: reviewed and remarkable for hypertension bradycardia Differential diagnosis: Obstructive uropathy, infected kidney stone, hydroureteronephrosis ER treatment provided: IV normal saline bolus IV normal saline drip IV morphine IV Zofran Diagnostics interpreted by me: Cardiac Monitoring: Normal sinus rhythm at a rate of 68. Laboratory studies: See below HPI: 75/M arrives for evaluation of right flank pain and nausea. The patient has a known large right mid ureter stone. Patient did well upon discharge from the ER 2 days ago but developed recurrent right-sided pain and nausea today. He did not get his pain medication picked up from the pharmacy. ROS: See above HPI for pertinent positives & negatives. A total of 10 systems reviewed and were otherwise negative. PAST MEDICAL HISTORY:See Below PAST SURGICAL HISTORY:See Below FAMILY HISTORY:See Below SOCIAL HISTORY:See Below HOME MEDICATIONS:See Below ALLERGIES:See Below VITALS:See Below PHYSICAL EXAMINATION: HEENT: Head - normocephalic and atraumatic Pupils are equal, round, and reactive to light. Extraocular eye muscles are intact, and sclera are anicteric. Nose - moist nasal mucosa without discharge. Mouth - moist buccal mucosa. Oropharynx is nonerythematous and there is no tonsillar exudate or edema noted. Neck: Supple; no JVD, nuchal rigidity, cervical lymphadenopathy, or auscultated bruits. Heart: Regular rate and rhythm. There is a normal S1 and S2 with no murmurs, clicks, or gallops appreciated. Lungs: Clear to auscultation bilaterally with no wheezes, rales, or rhonchi. Abdomen: Soft, protuberant with right lower quadrant abdominal pain with palpation, nondistended, with good bowel sounds. There are no palpable pulsatile masses or hepatosplenomegaly. There is no guarding, rigidity, or rebound noted. Extremities: No evidence of cyanosis, clubbing, or edema. There are easily palpable peripheral pulses. Skin: warm and dry with good turgor and no rashes. ED COURSE: Times/Reassessments: 0210: Patient was evaluated in room C7. A complete history and physical was performed. An IV lock was initiated and labs are as above. The patient was bolused with a 500 cc of saline. He was given 4 mg of IV Zofran and 4 mg of IV morphine. He had a KUB performed. Upon reevaluation, the patient was feeling somewhat better. I discussed the case with the [facility] hospitalist and they will reevaluate for further management. Deanna Felipe DO Past Med/Surg History Medical History Martinez's esophagus BPH (benign prostatic hyperplasia) CAD (coronary artery disease) Diverticulosis of colon GERD (gastroesophageal reflux disease) Hearing deficit Hiatal hernia History of gastritis Hyperlipidemia Hypertension Hypothyroidism Kidney stones Mitral regurgitation Myocardial Infarction Nephrolithiasis Restrictive airway disease Surgical History History of cardiac cath History of colonoscopy History of esophagogastroduodenoscopy (EGD) History of eye surgery History of lithotripsy S/P CABG (coronary artery bypass graft) Status post arthroscopy of left shoulder Family History Mother Breast cancer Father Myocardial infarction Other No family history of adverse response to anesthesia Denies family history of Ovarian cancer Prostate cancer Colorectal cancer Social History Smoking Status: Never smoker Second Hand Exposure: No; Hx Alcohol Use: No Hx Substance Use: No Preferred Language: Yakut Communication Ability: Effective Research Consultant Required: No Beliefs That Will Affect Care: None marital status: Current Living Situation: Spouse current occupational status: retired Feels Safe at Home: Yes caffeine: Yes Dental Care, Regularly: No Physical Activity Frequency: 3-4 Times per Week Seatbelt Use: always Sunscreen Use: Yes Assistive Devices: Glasses and Hearing Aid - Bilateral Allergies Allergies Allergy/AdvReac Type Severity Reaction Status Date / Time propofol AdvReac Severe EXTREME Verified 03/09/21 02:52 AGITATION Home Meds Home Medications Medication Instructions Recorded Confirmed iswetizm-jvn-yhxrp acid 300 1 tab PO QAM 12/15/18 03/11/21 mcg-lycopene 600 mcg-lutein 300 mcg tablet (Centrum Silver Men) amlodipine 10 mg tablet 10 mg PO QAM 02/24/20 03/11/21 aspirin 81 mg tablet,delayed 81 mg PO QAM 02/24/20 03/11/21 release (Aspirin Low Dose) levothyroxine 50 mcg tablet 50 mcg PO QAM 02/24/20 03/11/21 losartan 100 mg tablet 100 mg PO QAM 02/24/20 03/11/21 pravastatin 40 mg tablet 40 mg PO HS 02/24/20 03/11/21 spironolactone 25 mg tablet 12.5 mg PO QAM 02/24/20 03/11/21 fluticasone furoate 100 1 inh INHALATION QA 03/12/20 03/11/21 mcg-vilanterol 25 mcg/dose inhalation powder (Breo Ellipta) furosemide 20 mg tablet 20 mg PO 5XWK 03/12/20 03/11/21 allopurinol 100 mg tablet 100 mg PO QAM 08/21/20 03/11/21 Previous Rx's Medication Instructions Recorded nitroglycerin 0.4 mg sublingual 0.4 mg SL Q5M PRN #25 tab 03/04/20 tablet pantoprazole 40 mg tablet,delayed 40 mg PO DAILY #90 tab 02/10/21 release albuterol sulfate 90 mcg/actuation 2 puff INHALATION Q6H PRN #8.5 g 02/19/21 aerosol inhaler oxycodone-acetaminophen 5 mg-325 1 tab PO Q4H PRN #20 tab 03/09/21 mg tablet (Percocet) Results & Data (ED) Vital Signs Vital Signs - 24 hr 03/11/21 02:00 03/11/21 02:47 03/11/21 03:22 Temperature 36.6 C Temperature Source Temporal Artery Scan Pulse Rate 51 L 55 L Pulse Rate [Finger] 58 L Respiratory Rate 16 Blood Pressure 191/78 H Blood Pressure Mean 115 Blood Pressure Position Sitting Pulse Oximetry 94 96 92 Oxygen Delivery Method Room Air Room Air Room Air Sepsis Recent Fever Within 48 Hours No Sepsis New/Unexplained Change in Mental Status No Sepsis Action Taken by Nursing No Action Required 03/11/21 05:35 Temperature Temperature Source Pulse Rate Pulse Rate [Finger] 66 Respiratory Rate Blood Pressure Blood Pressure Mean Blood Pressure Position Pulse Oximetry 97 Oxygen Delivery Method Room Air Sepsis Recent Fever Within 48 Hours Sepsis New/Unexplained Change in Mental Status Sepsis Action Taken by Nursing Laboratory Data Result diagrams: 03/11/21 02:45 03/11/21 02:45 Lab Results 03/11/21 03/11/21 03/11/21 Range/Units 02:45 02:45 02:45 WBC 5.64 (4.8-10.8) K/uL RBC 5.51 (4.7-6.1) M/uL Hgb 16.3 (14.0-18.0) g/dL Hct 46.5 (42-52) % MCV 84.4 (80-100) fL MCH 29.6 (25-34) pg MCHC 35.1 (32-36) g/dL RDW Std Deviation 39.9 (36.4-46.3) fL RDW Coeff of Nancy 13.0 (11.5-14.5) % Plt Count 227 (130-400) K/uL MPV 10.9 H (7.4-10.4) fL Immature Gran % (Auto) 0.0 % Neut % (Auto) 58.4 % Lymph % (Auto) 25.2 % [place] % (Auto) 11.0 % Eos % (Auto) 4.3 % Baso % (Auto) 1.1 % Neut # (Auto) 3.30 (1.4-6.5) K/uL Lymph # (Auto) 1.42 (1.2-3.4) K/uL [place] # (Auto) 0.62 H (0.11-0.59) K/uL Eos # (Auto) 0.24 (0-0.5) K/uL Baso # (Auto) 0.06 (0-0.2) K/uL Immature Gran # (Auto) 0.00 (0.00-0.02) K/uL Sodium 138 (136-145) mmol/L Potassium 4.1 (3.5-5.1) mmol/L Chloride 104 (98-107) mmol/L Carbon Dioxide 25 (21-32) mmol/L Anion Gap 9 (3-11) BUN 22 (6-23) mg/dl Creatinine 1.10 (0.6-1.4) mg/dl Est Cr Clr Drug Dosing 75.1 ml/min Est GFR ( Amer) 76.8 ml/min Est GFR (Non-Af Amer) 66.2 ml/min BUN/Creatinine Ratio 20.0 (10-20) Glucose 115 H (70-99(Fasting)) mg/dl Calcium 8.9 (8.5-10.1) mg/dl Total Bilirubin 0.8 (0.2-1.0) mg/dl AST 23 (13-39) U/L ALT 35 (7-52) U/L Alkaline Phosphatase 54 (34-104) U/L Total Protein 6.5 (6.0-8.3) gm/dl Albumin 4.0 (3.4-5.0) gm/dl Globulin 2.5 (2.5-4.0) gm/dl Albumin/Globulin Ratio 1.6 (0.9-2) Urine Color Urine Appearance (Clear) Urine pH (4.5-7.5) Ur Specific [place] (1.000-1.030) Urine Protein (Negative) Urine Glucose (UA) (Negative) Urine Ketones (Negative) Urine Blood (Negative) Urine Nitrite (Negative) Urine Bilirubin (Negative) Urine Urobilinogen (Negative) Ur Leukocyte Esterase (Negative) Urine WBC (Auto) (0-5) /hpf Urine RBC (Auto) (0-4) /hpf U Hyaline Cast (Auto) (0-5) /lpf U Epithel Cells (Auto) (0-5) /lpf Urine Bacteria (Auto) (Negative) SARS-CoV-2, RNA, NAAT NEGATIVE (NEGATIVE) 03/11/21 Range/Units Unknown WBC (4.8-10.8) K/uL RBC (4.7-6.1) M/uL Hgb (14.0-18.0) g/dL Hct (42-52) % MCV (80-100) fL MCH (25-34) pg MCHC (32-36) g/dL RDW Std Deviation (36.4-46.3) fL RDW Coeff of Nancy (11.5-14.5) % Plt Count (130-400) K/uL MPV (7.4-10.4) fL Immature Gran % (Auto) % Neut % (Auto) % Lymph % (Auto) % [place] % (Auto) % Eos % (Auto) % Baso % (Auto) % Neut # (Auto) (1.4-6.5) K/uL Lymph # (Auto) (1.2-3.4) K/uL [place] # (Auto) (0.11-0.59) K/uL Eos # (Auto) (0-0.5) K/uL Baso # (Auto) (0-0.2) K/uL Immature Gran # (Auto) (0.00-0.02) K/uL Sodium (136-145) mmol/L Potassium (3.5-5.1) mmol/L Chloride (98-107) mmol/L Carbon Dioxide (21-32) mmol/L Anion Gap (3-11) BUN (6-23) mg/dl Creatinine (0.6-1.4) mg/dl Est Cr Clr Drug Dosing ml/min Est GFR ( Amer) ml/min Est GFR (Non-Af Amer) ml/min BUN/Creatinine Ratio (10-20) Glucose (70-99(Fasting)) mg/dl Calcium (8.5-10.1) mg/dl Total Bilirubin (0.2-1.0) mg/dl AST (13-39) U/L ALT (7-52) U/L Alkaline Phosphatase (34-104) U/L Total Protein (6.0-8.3) gm/dl Albumin (3.4-5.0) gm/dl Globulin (2.5-4.0) gm/dl Albumin/Globulin Ratio (0.9-2) Urine Color Yellow Urine Appearance Clear (Clear) Urine pH 5.0 (4.5-7.5) Ur Specific [place] > 1.045 H (1.000-1.030) Urine Protein 1+ H (Negative) Urine Glucose (UA) 3+ H (Negative) Urine Ketones 3+ H (Negative) Urine Blood Negative (Negative) Urine Nitrite Negative (Negative) Urine Bilirubin Negative (Negative) Urine Urobilinogen Negative (Negative) Ur Leukocyte Esterase Negative (Negative) Urine WBC (Auto) 1-5 (0-5) /hpf Urine RBC (Auto) 0-4 (0-4) /hpf U Hyaline Cast (Auto) 1-5 (0-5) /lpf U Epithel Cells (Auto) 10-20 H (0-5) /lpf Urine Bacteria (Auto) Negative (Negative) SARS-CoV-2, RNA, NAAT (NEGATIVE) Administered Medications Sodium Chloride (Nss 1000ml) 1,000 mls @ 125 mls/hr IV .Q8H STA Stop: 03/11/21 10:22 Last Admin: 03/11/21 03:31 Dose: 125 mls/hr Documented by: [id number] Discontinued Medications Sodium Chloride (Nss) 500 mls @ 999 mls/hr IV .Q31M STA Stop: 03/11/21 02:53 Last Infusion: 03/11/21 03:31 Dose: 0 mls/hr Documented by: [id number] Admin: 03/11/21 02:57 Dose: 999 mls/hr Documented by: [id number] Morphine Sulfate (Morphine Sulfate 4 Mg/Ml 1 Ml Carp\Vial) 4 mg IV NOW STA Stop: 03/11/21 02:24 Last Admin: 03/11/21 02:57 Dose: 4 mg Documented by: [id number] Ondansetron HCl (Ondansetron Inj 2 Mg/Ml 2 Ml Vial) 4 mg IV NOW STA Stop: 03/11/21 02:24 Last Admin: 03/11/21 02:57 Dose: 4 mg Documented by: [id number] Discharge Plan Visit Data Chief Complaint: Kidney Stone Stated Complaint: KIDNEY STONES ED Provider: Deanna Felipe Discharge Problem: Hydronephrosis with renal and ureteral calculus obstruction, Intractable right lower quadrant abdominal pain Forms Stand Alone Forms: [facility] Prescriptions Prescriptions: No Action albuterol sulfate 90 mcg/actuation HFA aerosol inhaler 2 puff inhalation Q6H PRN (Reason: shortness of breath or wheezing) Qty: 8.5 RF: 2 Centrum Silver Men 300-600-300 mcg tablet 1 tab PO QAM RF: 0 nitroglycerin 0.4 mg tablet, sublingual 0.4 mg SL Q5M PRN (Reason: chest pain) Qty: 25 RF: 3 pantoprazole 40 mg tablet,delayed release (DR/EC) 40 mg PO DAILY Qty: 90 RF: 3 aspirin [Aspirin Low Dose] 81 mg Tablet,Delayed Release (Dr/Ec) 81 mg PO QAM RF: 0 pravastatin 40 mg tablet 40 mg PO HS RF: 0 spironolactone 25 mg tablet 12.5 mg PO QAM RF: 0 amlodipine 10 mg tablet 10 mg PO QAM RF: 0 levothyroxine 50 mcg tablet 50 mcg PO QAM RF: 0 losartan 100 mg tablet 100 mg PO QAM RF: 0 furosemide 20 mg tablet 20 mg PO 5XWK RF: 0 Breo Ellipta 100-25 mcg/dose blister with device 1 inh inhalation QAM RF: 0 allopurinol 100 mg tablet 100 mg PO QAM RF: 0 oxycodone-acetaminophen [Percocet] 5-325 mg tablet 1 tab PO Q4H PRN (Reason: pain) Qty: 20 RF: 0 Referrals Referrals: Grace Garcia CRNP [Primary Care Provider] -
[2021-03-11 03:07] LABS: Basophils # (auto) 0.06 K/uL (0-0.2); Basophils % (auto) 1.1 %; Eosinophils # (auto) 0.24 K/uL (0-0.5); Eosinophils % (auto) 4.3 %; Hematocrit (blood only) 46.5 % (42-52); Hemoglobin 16.3 g/dL (14.0-18.0); Lymphocytes # (auto) 1.42 K/uL (1.2-3.4); Lymphocytes % (auto) 25.2 %; Mean Corpuscular Hemoglobin 29.6 pg (25-34); Mean Corpuscular Hgb Conc 35.1 g/dL (32-36); Mean Corpuscular Volume 84.4 fL (80-100); Mean Platelet Volume 10.9 fL (7.4-10.4); Monocytes # (auto) 0.62 K/uL (0.11-0.59); Neutrophils % (auto) 58.4 %; Platelet Count 227 K/uL (130-400); RDW Standard Deviation 39.9 fL (36.4-46.3); Red Blood Count 5.51 M/uL (4.7-6.1); White Blood Count 5.64 K/uL (4.8-10.8)
[2021-03-11 03:31] LABS: Albumin Globulin Ratio 1.6 (0.9-2); Bilirubin,Total 0.8 mg/dl (0.2-1.0); Calcium 8.9 mg/dl (8.5-10.1); Creatinine Clr Calc Pharmacy 75.1 ml/min; Est GFR (African American) 76.8 ml/min; Est GFR (Non-African American) 66.2 ml/min; Globulin 2.5 gm/dl (2.5-4.0); Potassium 4.1 mmol/L (3.5-5.1); Total Protein 6.5 gm/dl (6.0-8.3)
--- NOTE | 2021-03-11 04:05 | History & Physical Report ---
Date of Service March 11, 2021 Assessment & Plan (1) Hydronephrosis with renal and ureteral calculus obstruction: Plan: 75 y/o M w/ PMHx of HTN, HLD, CAD s/p CABGx3, pAF, HFpEF, GERD, Martinez's, hypothyroidism, Paget's, gout, BPH, recurrent kidney stones who presents exacerbation of right side/flank pain secondary to 5mm right ureteral stone. Stable. 03/08/21 CT abd/pelv w/o contrast. 1. Obstructive stone in the right ureter with mild hydronephrosis. 2. Hepatic steatosis. Ill-defined hypodense lesion in the gallbladder fossa. If not previously evaluated and further evaluation is desired, liver mass protocol CT or MRI can be performed. Currently, pain is controlled s/p 1 dose of 4mg IV morphine. 3mg q4hprn ordered. Provided dose of tamsulosin for promotion of stone excretion. Will likely need daily. Consulted urology. Hold home allopurinol. Defer fluids in seting of HTN. (2) CAD (coronary artery disease): Plan: s/p CABG x3 in 2011. Hold home baby ASA. (3) GERD (gastroesophageal reflux disease): Plan: Continue home PPI. (4) Hypothyroidism: Plan: Continue home regimen. (5) Restrictive airway disease: Plan: Continue home inhalers. (6) Hyperlipidemia: Plan: Continue home regimen. (7) Benign prostatic hyperplasia with urinary obstruction and other lower urinary tract symptoms: Plan: - chronic (8) Chronic diastolic (congestive) heart failure: Plan: - chronic. Some BLE noted otherwise not grossly hypervolemic. (9) Paget's disease: Plan: - may be contributory to recurrent kidney stones (10) Hypertension: Plan: Continue home regimen. Defer IV fluids in setting of current elevated BPs up to 191/78. Plan: NPO SQ heparin q8h med/surg full code History of Present Illness Chief Complaint: kidney stone Primary Care Provider: YI Acuña 75 y/o M w/ PMHx of HTN, HLD, CAD s/p CABGx3, pAF, HFpEF, GERD, Martinez's, hypothyroidism, Paget's, gout, BPH, recurrent kidney stones who presents w/ known right ureteral stone. He was sent home from [facility] ED on 03/09/21, but returned after not being able to set up a soon enough appointment w/ urology. He had not yet filled his pain medication prescription. Initial pain was 03/08/21 nighttime, went to [facility] ED. Earlier, pain was 7-8/10 waxing and waning, somewhat relieved by walking. Currently pain is 1/10. Pain is at R side/flank, described as dull stabbing. No radiation. Some diaphoresis. +N, no vomiting. Follows Dr. Perez [facility] urology. Has had covid vaccines + booster. Allergies Allergy/AdvReac Type Severity Reaction Status Date / Time propofol AdvReac Severe EXTREME Verified 03/11/21 07:38 AGITATION Home Medications Medication Instructions Recorded Confirmed Type qcsbucbx-jvc-fjugj acid 300 1 tab PO QAM 12/15/18 03/11/21 History mcg-lycopene 600 mcg-lutein 300 mcg tablet (Centrum Silver Men) amlodipine 10 mg tablet 10 mg PO QAM 02/24/20 03/11/21 History aspirin 81 mg tablet,delayed 81 mg PO QAM 02/24/20 03/11/21 History release (Aspirin Low Dose) levothyroxine 50 mcg tablet 50 mcg PO QAM 02/24/20 03/11/21 History losartan 100 mg tablet 100 mg PO QAM 02/24/20 03/11/21 History pravastatin 40 mg tablet 40 mg PO HS 02/24/20 03/11/21 History spironolactone 25 mg tablet 12.5 mg PO QAM 02/24/20 03/11/21 History nitroglycerin 0.4 mg sublingual 0.4 mg SL Q5M PRN #25 tab 03/04/20 03/11/21 Rx tablet fluticasone furoate 100 1 inh INHALATION QA 03/12/20 03/11/21 History mcg-vilanterol 25 mcg/dose inhalation powder (Breo Ellipta) furosemide 20 mg tablet 20 mg PO 5XWK 03/12/20 03/11/21 History allopurinol 100 mg tablet 100 mg PO QAM 08/21/20 03/11/21 History albuterol sulfate 90 mcg/actuation 2 puff INHALATION Q6H PRN #8.5 g 02/19/21 03/11/21 Rx aerosol inhaler pantoprazole 40 mg tablet,delayed 40 mg PO QAM 03/11/21 03/11/21 History release acetaminophen 500 mg tablet 500 mg PO Q6H PRN #14 tab 03/12/21 Rx (Tylenol Extra Strength) phenazopyridine 100 mg tablet 100 mg PO TID #14 tab 03/12/21 Rx (Pyridium) tamsulosin 0.4 mg capsule (Flomax) 0.4 mg PO DAILY #30 cap 03/12/21 Rx Past Med/Surg History Medical History (Updated 03/11/21 @ 10:29 by Valeria Gallagher MD) Martinez's esophagus BPH (benign prostatic hyperplasia) CAD (coronary artery disease) Diverticulosis of colon GERD (gastroesophageal reflux disease) Hearing deficit [place] Hiatal hernia History of gastritis Hydronephrosis with renal and ureteral calculus obstruction Hydronephrosis with renal and ureteral calculus obstruction Hyperlipidemia Hypertension Hypothyroidism Kidney stones hx Mitral regurgitation Myocardial Infarction 2012 Nephrolithiasis Restrictive airway disease only use inhaler in the winter months Surgical History History of cardiac cath 2011 - no stents --> sent for CABG. History of colonoscopy History of esophagogastroduodenoscopy (EGD) 03/20/20 [facility] History of eye surgery History of lithotripsy S/P CABG (coronary artery bypass graft) x3 vessels (2011) STEVEN Álvarez. follows with Leonard Membreno. Status post arthroscopy of left shoulder Family History Mother Breast cancer Father Myocardial infarction Other No family history of adverse response to anesthesia Denies family history of Ovarian cancer Prostate cancer Colorectal cancer Social History Smoking Status: Never smoker Second Hand Exposure: No; Hx Alcohol Use: Yes Alcohol type: beer Hx Substance Use: No Preferred Language: [place] Communication Ability: Effective Sane Rn Required: No Beliefs That Will Affect Care: None marital status: Current Living Situation: Spouse current occupational status: retired Feels Safe at Home: Yes caffeine: Yes Dental Care, Regularly: No Physical Activity Frequency: 3-4 Times per Week Seatbelt Use: always Sunscreen Use: Yes Assistive Devices: None Review of Systems Review of Systems: All systems reviewed & are unremarkable except as noted in HPI & below Constitutional: Denies fever, chills Eyes: Denies blurry vision, vision changes ENT: Denies sore throat, sinus pain Cardiovascular: Denies chest pain, palpitations Respiratory: Denies shortness of breath, cough Gastrointestinal: Denies vomiting, constipation, diarrhea. See HPI re: R side/flank pain. Genitourinary: Denies urinary symptoms including dysuria. No hematuria. Musculoskeletal: Denies weakness, muscle aches/pain, joint aches/pain Neurological: Denies headache, numbness, tingling, focal weakness Physical Exam Physical Exam: General: Grossly A&O. NAD. Cooperative. HEENT: Atraumatic, normocephalic. EOMI. PERRL. Pulm: CTAB. -wheezes, -rales, -rhonchi. No respiratory distress. Cardiac: RRR, -mrg. Radial pulses intact and symmetrical. 1+ LE edema on R. 2+ on L. Abdominal: Nontender, nondistended, soft. Back: No TTP at CVA area. Mild TTP at area below CVA, just above R posterior superior iliac crest. Integ: Warm, dry, intact. Msk: Moving all extremities. Results & Data Results & Data ([facility]) Vital Signs (Past 12 Hours) Vital Signs HR 50s. BP up to 191/78. Saturating 92-96 on room air. Temp Pulse Pulse Resp BP Pulse Ox 03/11/21 03:22 58 L 92 03/11/21 02:47 55 L 96 03/11/21 02:00 36.6 C 51 L 16 191/78 H 94 Laboratory Results 03/11/21 02:45 03/11/21 02:45 Cardiac Enzymes 03/11/21 Range/Units 02:45 AST 23 (13-39) U/L CBC 03/11/21 Range/Units 02:45 WBC 5.64 (4.8-10.8) K/uL RBC 5.51 (4.7-6.1) M/uL Hgb 16.3 (14.0-18.0) g/dL Hct 46.5 (42-52) % Plt Count 227 (130-400) K/uL Neut # (Auto) 3.30 (1.4-6.5) K/uL Lymph # (Auto) 1.42 (1.2-3.4) K/uL [place] # (Auto) 0.62 H (0.11-0.59) K/uL Eos # (Auto) 0.24 (0-0.5) K/uL Baso # (Auto) 0.06 (0-0.2) K/uL Comprehensive Metabolic Panel 03/11/21 Range/Units 02:45 Sodium 138 (136-145) mmol/L Potassium 4.1 (3.5-5.1) mmol/L Chloride 104 (98-107) mmol/L Carbon Dioxide 25 (21-32) mmol/L BUN 22 (6-23) mg/dl Creatinine 1.10 (0.6-1.4) mg/dl Glucose 115 H (70-99(Fasting)) mg/dl Calcium 8.9 (8.5-10.1) mg/dl AST 23 (13-39) U/L ALT 35 (7-52) U/L Alkaline Phosphatase 54 (34-104) U/L Total Protein 6.5 (6.0-8.3) gm/dl Albumin 4.0 (3.4-5.0) gm/dl Intake and Output 03/10/21 03/10/21 03/11/21 14:59 22:59 06:59 Intake Total 500 / 500 Balance 500 / 500 Intake: IV 500 / 500 Sodium Chloride 0.9% 500 ml @ 500 / 500 999 mls/hr IV .Q31M STA Rx#: [id number] Other: Weight 119.4 kg Weight Measurement Method Chair Scale Patient Weight 03/11/21 06:59 Weight 119.4 kg Diagnostic Findings KUB: Per my interpretation: Normal abdominal gas pattern. Mild amount of stool. 03/08/21 CT abd/pelv w/o contrast. : 1. Obstructive stone in the right ureter with mild hydronephrosis. 2. Hepatic steatosis. Ill-defined hypodense lesion in the gallbladder fossa. If not previously evaluated and further evaluation is desired, liver mass protocol CT or MRI can be performed. 3. Additional findings in full report. - 12 mm hyperdense focus in the gallbladder fossa, - Kidneys and ureters: There is a stone in the right proximal ureter measuring approximately 5 mm in diameter. Mild hydroureteronephrosis is seen on the right. Caliectasis versus parapelvic cysts are noted on the left. ECG Additional Comments: No ecg performed this admission. Code Status & VTE Plan Code Status full VTE Prophylaxis Plan VTE Prophylaxis will be ordered: Yes Supervising Physician Co-Signing Physician Notes During face to face encounter with patient, I obtained a history and physical examination. I discussed plan of care with Dr. Ramirez and patient. Patient will be admitted with hydronephrosis and kidney stone. will place on daily tamsulosin. will consult Urology. Resident Activity Tracking Resident Involvement: Resident Care Provided Care Provided: Adult Hospital Medicine (1) CAD (coronary artery disease) Associated angina: with unspecified angina Coronary Disease-Associated Artery/Lesion type: unspecified vessel or lesion type [place] vs. transplanted heart: [place] heart Qualified Code(s): I25.119 - Atherosclerotic heart disease of [place] coronary artery with unspecified angina pectoris
[2021-03-11 05:21] LABS: Appearance Urine Clear (Clear); Bacteria Urine Automated Negative (Negative); Bilirubin Urine Negative (Negative); Blood Urine Negative (Negative); Color Urine Yellow; Glucose Urine UA 3+ (Negative); Ketones Urine 3+ (Negative); Leukocyte Esterase Urine Negative (Negative); Nitrite Urine Negative (Negative); Protein Urine 1+ (Negative); RBC Urine Automated 0-4 /hpf (0-4); Specific Gravity Urine > 1.045 (1.000-1.030); Urobilinogen Urine Negative (Negative)
[2021-03-11] MEDS ORDERED: CIPROFLOXACIN / D5W 400 MG/200 ML BAG IV SCH (06:00)
[2021-03-11] MEDS ORDERED: TAMSULOSIN HCL 0.4 MG CAP PO STA (06:28)
[2021-03-11] MEDS ORDERED: TAMSULOSIN HCL 0.4 MG CAP ONE (06:36)
[2021-03-11] MEDS ORDERED: MoRPHine SULFATE 4 MG/ML 1 ML CARP\\VIAL IV PRN (07:03)
--- NOTE | 2021-03-11 07:50 | XRay Report ---
KUB CLINICAL HISTORY: Nephrolithiasis. FINDINGS: 2 AP supine abdominal radiographs are compared to study dated 05/15/2013 and correlated with abdominal CT dated 03/09/2021. There is a nonobstructed abdominal bowel gas pattern. Moderate to meryl re fecal retention is noted throughout the colon. This largely obscures the renal shadows. There is n o radiographic evidence of nephrolithiasis on today's examination. The skeletal structures are osteop enic and appear intact. There is moderate lumbosacral spondylosis. IMPRESSION: 1. Moderate to severe constipation largely obscures the renal shadows. 2. The patient's known right ureteral stone seen by CT is not clearly visualized. Electronically signed by: Umer Clancy M.D. 03/11/2021 7:49 AM
[2021-03-11] MEDS ORDERED: oxyCODONE/ACETAMINOPHEN 5mg/325mg TAB PO PRN (08:32)
[2021-03-11] MEDS ORDERED: NITROGLYCERIN SL 0.4 MG/TAB TAB SL PRN (08:32)
[2021-03-11] MEDS ORDERED: ALBUTEROL HFA 8 GM INHALER INH PRN (08:32)
[2021-03-11] MEDS ORDERED: ONDANSETRON INJ 2 MG/ML 2 ML VIAL IV PRN ×2 (08:32→10:29)
[2021-03-11] MEDS ORDERED: ACETAMINOPHEN 325 MG TAB PO PRN (08:32)
--- NOTE | 2021-03-11 09:29 | Urology Consultation ---
Date of Consultation March 11, 2021 Assessment & Plan (1) Hydronephrosis with renal and ureteral calculus obstruction: (2) Calculus of proximal right ureter: 75 yo M admitted for 5 mm right proximal ureteral stone and mild hydronephrosis. - Urology consulted for right ureteral stone and hydronephrosis. - Patient with 2 recent ER presentations. - He is currently afebrile and nontoxic, lab work reviewed - creatinine and WBC within normal limits. - UA on admission not suspicious for infection. - Discussed options for trial of passage vs right ureteral stent placement today vs schedule outpatient surgical intervention. - Patient elects to proceed with ureteral stent placement today. - Findings reviewed with Dr. Chan, urologist metal bonding worker. - Given his hydronephrosis and pain in the context of an obstructing 5 mm right ureteral stone, will proceed with OR for cystoscopy and right ureteral stent placement. - Risks and benefits to be reviewed with patient by Dr. Chan. OR notified. COVID testing negative. - Will cover with IV Ciprofloxacin preoperatively. - Keep NPO for procedure. - Patient agreeable with the plan, all questions answered. History of Present Illness Reason for Consultation: R ureteral stone Requesting Physician: Dr. Randolph Attending Physician: Rene Randolph History of Present Illness 75 yo M with past medical history of BPH, nephrolithiasis, CAD, s/p CABG, chronic diastolic congestive heart failure, hypertension, hyperlipidemia, hypothyroidism, GERD, restrictive airway disease, Barretts esophagus, gout, prediabetes admitted for right flank pain secondary to 5 mm right proximal ureteral stone and mild hydronephrosis. Patient is known to urology service for BPH and nephrolithiasis, follows with Dr. Pelayo. He initially presented to [facility] ED on 03/08/2021 with right flank pain. He was afebrile. Lab work reviewed. Creatinine was within normal limits and no leukocytosis. UA showed 1-5 WBCs, > 30 RBCs, negative for bacteria and nitrates. CT abdomen/pelvis independently reviewed and showed 5 mm proximal right ureteral stone with mild hydroureteronephrosis. He was treated with IV fluids, Morphine, and Zofran and noted improvement. He was discharged to home with outpatient therapy to follow- up with urology. Unfortunately, he returned to ED today with recurrent right flank pain. Afebrile on arrival. Lab work independently reviewed. Creatinine 1.10, WBC 5.64. UA 1-5 WBCs, 0-4 RBCs, and negative for nitrates and bacteria. KUB today reviewed and no ureteral calculus visualized on today's exam. Covid testing negative. He was treated with IV fluids, Morphine and Zofran. He was admitted to hospital medicine service. Urology consulted for right ureteral stone. Patient was seen and examined in ER this AM. He is awake, alert and resting comfortably in litter. Reports intermittent right flank pain radiating to abdomen, but currently his pain is well controlled. No nausea or vomiting at present. Denies fever or chills. Voiding without difficulty. No dysuria or hematuria. Denies chest pain or shortness of breath. He last ate at 7:30 pm yesterday. Offers no additional complaints at this time. Allergies Allergy/AdvReac Type Severity Reaction Status Date / Time propofol AdvReac Severe EXTREME Verified 03/11/21 07:38 AGITATION Home Medications Medication Instructions Recorded Confirmed Type hfxmuyfv-ezj-yvkvk acid 300 1 tab PO QAM 12/15/18 03/11/21 History mcg-lycopene 600 mcg-lutein 300 mcg tablet (Centrum Silver Men) amlodipine 10 mg tablet 10 mg PO QAM 02/24/20 03/11/21 History aspirin 81 mg tablet,delayed 81 mg PO QAM 02/24/20 03/11/21 History release (Aspirin Low Dose) levothyroxine 50 mcg tablet 50 mcg PO QAM 02/24/20 03/11/21 History losartan 100 mg tablet 100 mg PO QAM 02/24/20 03/11/21 History pravastatin 40 mg tablet 40 mg PO HS 02/24/20 03/11/21 History spironolactone 25 mg tablet 12.5 mg PO QAM 02/24/20 03/11/21 History nitroglycerin 0.4 mg sublingual 0.4 mg SL Q5M PRN #25 tab 03/04/20 03/11/21 Rx tablet fluticasone furoate 100 1 inh INHALATION QAM 03/12/20 03/11/21 History mcg-vilanterol 25 mcg/dose inhalation powder (Breo Ellipta) furosemide 20 mg tablet 20 mg PO 5XWK 03/12/20 03/11/21 History allopurinol 100 mg tablet 100 mg PO QAM 08/21/20 03/11/21 History albuterol sulfate 90 mcg/actuation 2 puff INHALATION Q6H PRN #8.5 g 02/19/21 03/11/21 Rx aerosol inhaler oxycodone-acetaminophen 5 mg-325 1 tab PO Q4H PRN #20 tab 03/09/21 03/11/21 Rx mg tablet (Percocet) pantoprazole 40 mg tablet,delayed 40 mg PO QAM 03/11/21 03/11/21 History release Patient History Medical History Martinez's esophagus BPH (benign prostatic hyperplasia) CAD (coronary artery disease) Diverticulosis of colon GERD (gastroesophageal reflux disease) Hearing deficit BL SÁNCHEZ Hiatal hernia History of gastritis Hyperlipidemia Hypertension Hypothyroidism Kidney stones hx Mitral regurgitation Myocardial Infarction 2012 Nephrolithiasis Restrictive airway disease only use inhaler in the winter months Surgical History History of cardiac cath 2011 - no stents --> sent for CABG. History of colonoscopy History of esophagogastroduodenoscopy (EGD) 03/20/20 [facility] History of eye surgery History of lithotripsy S/P CABG (coronary artery bypass graft) x3 vessels (2011) STEVEN Álvarez. follows with Leonard Membreno. Status post arthroscopy of left shoulder Family History Mother Breast cancer Father Myocardial infarction Other No family history of adverse response to anesthesia Denies family history of Ovarian cancer Prostate cancer Colorectal cancer Social History Smoking Status: Never smoker Second Hand Exposure: No; Hx Alcohol Use: Yes Alcohol type: beer Hx Substance Use: No Preferred Language: Vincentian Communication Ability: Effective Manager Compliance Required: No Beliefs That Will Affect Care: None marital status: Current Living Situation: Spouse current occupational status: retired Feels Safe at Home: Yes Safety Concerns: Feels Safe At This Time caffeine: Yes Dental Care, Regularly: No Physical Activity Frequency: 3-4 Times per Week Seatbelt Use: always Sunscreen Use: Yes Assistive Devices: Glasses and Hearing Aid - Bilateral Review of Systems Constitutional: as per Subjective / HPI Eyes: no problem reported Ear, Nose, Mouth, Throat: no problem reported Respiratory: as per Subjective / HPI Cardiovascular: as per Subjective / HPI Gastrointestinal: as per Subjective / HPI Genitourinary: + as per Subjective / HPI Musculoskeletal: no problem reported Integumentary: no problem reported Neurologic: no problem reported Psychiatric: no problem reported Physical Exam Constitutional: well developed, well nourished and + obese; no acute distress and not ill appearing Neck: normal visual inspection Respiratory: normal respiratory effort and able to speak in complete sentences; no respiratory distress and no labored breathing Cardiovascular: Extremities: no pedal edema Gastrointestinal (Abdomen): Inspection/Auscultation: abdomen normal to inspection; abdomen not distended Percussion/Palpation: abdomen soft; abdomen nontender and no guarding Neurologic: moves all extremities and awake Psychiatric: Orientation: alert, oriented x 3 and cooperative Eye Contact: good eye contact Genitourinary: no CVA tenderness Results & Data ([facility]) Vital Signs (Past 12 Hours) Vital Signs Temp Pulse Pulse Resp BP BP Pulse Ox 03/11/21 09:01 20 03/11/21 08:08 61 18 161/71 H 97 03/11/21 05:35 66 97 03/11/21 03:22 58 L 92 03/11/21 02:47 55 L 96 03/11/21 02:00 36.6 C 51 L 16 191/78 H 94 PG Care Time/CCT Total # of Minutes Spent Total Time Spent with Patient: Total time spent is greater than 50% in coordination of care (as documented) at patient's floor/unit and/or counseling patient: Coding Level of Care Code 97524 Initial Inpt Care Lvl 2 Diagnoses Hydronephrosis with renal and ureteral calculus obstruction N13.2 Calculus of proximal right ureter N20.1
[2021-03-11] MEDS: FLUTICASONE/VILANTEROL 100/25MCG 14 PUFFS/INHALER INH SCH (10:08)
[2021-03-11] MEDS: LOSARTAN POTASSIUM 50 MG TAB PO SCH (10:08)
[2021-03-11] MEDS: LEVOTHYROXINE SODIUM 50 MCG TABLET PO SCH (10:09)
[2021-03-11] MEDS: PANTOprazole 40 MG TAB PO SCH (10:09)
[2021-03-11] MEDS: SPIRONOLACTONE 12.5 MG TAB PO SCH (10:09)
[2021-03-11] MEDS: CEROVITE ADV FORMULA TAB PO SCH (10:09)
[2021-03-11] MEDS: ASPIRIN 81 MG ECTAB PO SCH (10:09)
[2021-03-11] MEDS: HEPARIN SOD 5,000 UNIT/0.5 ML VIAL SQ SCH ×2 (10:10→21:21)
[2021-03-11] MEDS: amLODIPine BESYLATE 5 MG TAB PO SCH (10:10)
[2021-03-11] MEDS ORDERED: fentaNYL citrate 100 MCG/2 ML VIAL ONE (10:11)
[2021-03-11] MEDS ORDERED: MIDAZOLAM HCL 1 MG/ML 2ML VIAL ONE ×2 (10:11→11:08)
[2021-03-11] MEDS ORDERED: PROPOFOL IV EMULSION 10 MG/ML 20 ML VIAL IV ONE ×3 (10:11→11:16)
--- NOTE | 2021-03-11 10:27 | Anesthesiology Consultation ---
Date of Service March 11, 2021 Assessment & Plan (1) Encounter for pre-operative examination: History Surgery Operation Date: 03/11/21 08:20 Proposed Procedures p Cystoscopy, Right Stent - Jamarcus Chan MD Height/Weight Height: 5 ft 9 in Weight: 118.3 kg Allergies Allergy/AdvReac Type Severity Reaction Status Date / Time propofol AdvReac Severe EXTREME Verified 03/11/21 07:38 AGITATION Medications Home Medications Medication Instructions Recorded Confirmed Last Taken diivcamp-yte-xseht acid 300 1 tab PO QAM 12/15/18 03/11/21 03/10/21 mcg-lycopene 600 mcg-lutein 300 mcg tablet (Centrum Silver Men) amlodipine 10 mg tablet 10 mg PO QAM 02/24/20 03/11/21 03/10/21 aspirin 81 mg tablet,delayed 81 mg PO QAM 02/24/20 03/11/21 03/10/21 release (Aspirin Low Dose) levothyroxine 50 mcg tablet 50 mcg PO QAM 02/24/20 03/11/21 03/10/21 losartan 100 mg tablet 100 mg PO QAM 02/24/20 03/11/21 03/10/21 pravastatin 40 mg tablet 40 mg PO HS 02/24/20 03/11/21 03/10/21 spironolactone 25 mg tablet 12.5 mg PO QAM 02/24/20 03/11/21 03/10/21 nitroglycerin 0.4 mg sublingual 0.4 mg SL Q5M PRN #25 tab 03/04/20 03/11/21 Unknown tablet fluticasone furoate 100 1 inh INHALATION QA 03/12/20 03/11/21 03/10/21 mcg-vilanterol 25 mcg/dose inhalation powder (Breo Ellipta) furosemide 20 mg tablet 20 mg PO 5XWK 03/12/20 03/11/21 03/10/21 allopurinol 100 mg tablet 100 mg PO QAM 08/21/20 03/11/21 03/10/21 albuterol sulfate 90 mcg/actuation 2 puff INHALATION Q6H PRN #8.5 g 02/19/21 03/11/21 Unknown aerosol inhaler oxycodone-acetaminophen 5 mg-325 1 tab PO Q4H PRN #20 tab 03/09/21 03/11/21 Unknown mg tablet (Percocet) pantoprazole 40 mg tablet,delayed 40 mg PO QAM 03/11/21 03/11/21 03/10/21 release Active Medications Generic Name Dose Route Start Last Admin Trade Name Brian PRN Reason Stop Dose Admin Amlodipine Besylate 10 mg 03/11/21 09:00 03/11/21 10:10 Amlodipine Besylate 5 Mg Tab PO 04/10/21 08:59 10 mg QAM SILVERIO Administration Aspirin 81 mg 03/11/21 09:00 03/11/21 10:09 Aspirin 81 Mg Ectab PO 04/10/21 08:59 81 mg QAM SILVERIO Administration Fluticasone/Vilanterol 1 puffs 03/11/21 09:00 03/11/21 10:08 Fluticasone/Vilanterol 100/25mcg 14 Puffs/Inhaler INH 04/10/21 08:59 1 puffs QAM SILVERIO Administration Heparin Sodium (Porcine) 5,000 units 03/11/21 09:00 03/11/21 10:10 Heparin Sod 5,000 Unit/0.5 Ml Vial SQ 04/10/21 08:59 5,000 units Q12 SILVERIO Administration Levothyroxine Sodium 50 mcg 03/11/21 09:00 03/11/21 10:09 Levothyroxine Sodium 50 Mcg Tablet PO 04/10/21 08:59 50 mcg DAILYBB SILVERIO Administration Losartan Potassium 100 mg 03/11/21 09:00 03/11/21 10:08 Losartan Potassium 50 Mg Tab PO 04/10/21 08:59 100 mg QAM SILVERIO Administration Multivitamins/Minerals 1 tab 03/11/21 09:00 03/11/21 10:09 Cerovite Adv Formula Tab PO 04/10/21 08:59 1 tab QAM SILVERIO Administration Pantoprazole Sodium 40 mg 03/11/21 09:00 03/11/21 10:09 Pantoprazole 40 Mg Tab PO 04/10/21 08:59 40 mg DAILY SILVERIO Administration Spironolactone 12.5 mg 03/11/21 09:00 03/11/21 10:09 Spironolactone 12.5 Mg Tab PO 04/10/21 08:59 12.5 mg QAM SILVERIO Administration Past Medical History Medical History (Updated 03/11/21 @ 10:29 by Valeria Gallagher MD) Martinez's esophagus BPH (benign prostatic hyperplasia) CAD (coronary artery disease) Diverticulosis of colon GERD (gastroesophageal reflux disease) Hearing deficit BL SÁNCHEZ Hiatal hernia History of gastritis Hydronephrosis with renal and ureteral calculus obstruction Hydronephrosis with renal and ureteral calculus obstruction Hyperlipidemia Hypertension Hypothyroidism Kidney stones hx Mitral regurgitation Myocardial Infarction 2011 Nephrolithiasis Restrictive airway disease only use inhaler in the winter months Past Family History Family History Mother Breast cancer Father Myocardial infarction Other No family history of adverse response to anesthesia Denies family history of Ovarian cancer Prostate cancer Colorectal cancer Past Surgical History Surgical History History of cardiac cath 2011 - no stents --> sent for CABG. History of colonoscopy History of esophagogastroduodenoscopy (EGD) 03/20/20 [facility] History of eye surgery History of lithotripsy S/P CABG (coronary artery bypass graft) x3 vessels (2011) STEVEN Álvarez. follows with Leonard Membreno. Status post arthroscopy of left shoulder Social History Smoking Status: Never smoker Hx Alcohol Use: Yes Alcohol type: beer alcohol intake frequency: holidays/special occasions only Hx Substance Use: No substance use type: does not use Physical Exam Vital Signs Last Vital Signs Temp 36.9 C 03/11/21 09:45 Pulse 61 03/11/21 09:45 Resp 18 03/11/21 09:45 BP 164/82 H 03/11/21 09:45 Pulse Ox 96 03/11/21 09:45 Testing Laboratory Results 03/11/21 02:45 03/11/21 02:45 Urine Color Yellow 03/11/21 Unknown Urine Appearance Clear (Clear) 03/11/21 Unknown Urine pH 5.0 (4.5-7.5) 03/11/21 Unknown Ur Specific [place] > 1.045 (1.000-1.030) H 03/11/21 Unknown Urine Protein 1+ (Negative) H 03/11/21 Unknown Urine Glucose (UA) 3+ (Negative) H 03/11/21 Unknown Urine Ketones 3+ (Negative) H 03/11/21 Unknown Urine Nitrite Negative (Negative) 03/11/21 Unknown Ur Leukocyte Esterase Negative (Negative) 03/11/21 Unknown Urine WBC (Auto) 1-5 /hpf (0-5) 03/11/21 Unknown Urine RBC (Auto) 0-4 /hpf (0-4) 03/11/21 Unknown U Hyaline Cast (Auto) 1-5 /lpf (0-5) 03/11/21 Unknown U Epithel Cells (Auto) 10-20 /lpf (0-5) H 03/11/21 Unknown Urine Bacteria (Auto) Negative (Negative) 03/11/21 Unknown Electrocardiogram Date: 02/23/21 Normal sinus rhythm Left bundle branch block Abnormal ECG When compared with ECG of 01-JUL-2017 11:44, QRS duration has increased T wave inversion less evident in Lateral leads Confirmed by Royal Cope ([id number]) on 02/24/2020 11:15:35 AM
[2021-03-11] MEDS ORDERED: ePHEDrine sulfate 50 MG/ML AMP IV PRN (10:29)
[2021-03-11] MEDS ORDERED: HYDROmorphone INJ 1 MG/ML SYRINGE IV PRN (10:29)
[2021-03-11] MEDS ORDERED: fentaNYL citrate 100 MCG/2 ML VIAL IV PRN (10:29)
[2021-03-11] MEDS ORDERED: ATROPINE SULFATE 0.1 MG/ML 10ML SYR IV PRN (10:29)
[2021-03-11] MEDS: LACTATED RINGER'S 1,000 ML IV SCH (10:55)
[2021-03-11] MEDS ORDERED: KETAMINE 50 MG/5 ML SYRINGE ONE (11:09)
[2021-03-11] MEDS ORDERED: ONDANSETRON INJ 2 MG/ML 2 ML VIAL ONE (11:16)
--- NOTE | 2021-03-11 11:26 | Operative Report ---
PG Post Operative Report Pre & Post Diagnosis Operation Date: 03/11/21 08:20 Pre-Op Diagnosis: Calculus of right ureter Post-Op Diagnosis: Calculus of right ureter I identified the patient and participated in the time-out.: Yes Procedure Operation Date: 03/11/21 08:20 Actual Procedures p Cystoscopy, Right Stent Placment(Right) - Jamarcus Chan MD Surgeon Royal Chan MD Formula Mixer none Estimated Blood Loss 0 Findings Consistent with Post-Op Diagnosis Specimens none Description of Procedure The patient was identified in the preoperative holding area, appropriate informed consents were reviewed and completed and the patient was transferred to the operative suite. Upon arrival, appropriate antibiotics and anesthesia were administered and the patient was placed in dorsal lithotomy position and prepped and draped in sterile fashion. Begin the case to pass a 22 [place]ian cystoscope with 30 degree lens. Inspection revealed a healthy-appearing urethra. He has a relatively large prostate with an intravesical component. I was able to navigate around this and identified the right ureteral orifice. I cannulated with a sensor wire 5 Ghanaian open-ended catheter. I then placed a 6 [place]ian by 26 cm double-J stent seeing a good curl in the kidney as well as the bladder. I emptied the bladder and concluded the case. He was reversed of anesthesia and taken to the recovery room in stable condition. There were no complications. I attest to the content of the Intraoperative Record and any orders documented therein. Any exceptions are noted below.
--- NOTE | 2021-03-11 11:29 | Hospitalist Progress Note ---
Date of Service March 11, 2021 Assessment & Plan (1) Calculus of proximal right ureter: Plan: Patient has presented to the emergency department a couple of times recently with complaints of right flank pain. CT abdomen and pelvis showed evidence of a 5 mm obstructing stone with hydronephrosis on the right. Urology has been consulted. Plan is for OR for stent placement and cystoscopy Patient received empiric IV antibiotics (2) Hypertension: Plan: Blood pressure 166/81 Continue home medications (3) CAD (coronary artery disease): Plan: Continue statin Admission and Anticipated Discharge Date Admission Date: March 11, 2021 Subjective patient seen and examined today Review of Systems Review of Systems: All systems reviewed are negative, apart from the ones contained in the history. Physical Exam Physical Exam: The patient is awake, alert and oriented 3, well developed and well nourished, normocephalic and atraumatic, lying in bed and in no acute distress. HEENT--PERRL, EOMI, mucous membranes and oropharynx mildly dry Neck--supple. No JVD. No bruits. Thyroid normal, trachea midline, no adenopathy. Heart--normal S1 and S2. No murmurs, rubs or gallops. Lungs--clear bilaterally, no respiratory distress, no accessory muscle use. Abdomen--normal bowel sounds and soft. Mild epigastric and left sided abdominal pain Extremities--no cyanosis or clubbing. No edema. Dermatologic--normal skin turgor, normal color, no abnormal lymph nodes, no rash. Neurologic--cranial nerves II through XII grossly intact. Rheumatologic--normal range of motion. Psychiatric--normal affect. Results & Data Results & Data ([facility]) Vital Signs (Past 12 Hours) Vital Signs Temp Pulse Pulse Pulse Resp BP BP 03/11/21 10:45 97.9 F 72 20 166/81 H 03/11/21 09:45 98.4 F 61 18 164/82 H 03/11/21 09:38 78 18 159/79 H 03/11/21 09:28 98.1 F 76 20 163/79 H 03/11/21 09:01 20 03/11/21 08:08 61 18 161/71 H 03/11/21 05:35 66 03/11/21 03:22 58 L 03/11/21 02:47 55 L 03/11/21 02:00 97.9 F 51 L 16 191/78 H Pulse Ox 03/11/21 10:45 97 03/11/21 09:45 96 03/11/21 09:38 97 03/11/21 09:28 96 03/11/21 09:01 03/11/21 08:08 97 03/11/21 05:35 97 03/11/21 03:22 92 03/11/21 02:47 96 03/11/21 02:00 94 PG Care Time/CCT Total # of Minutes Spent Total Time Spent with Patient: Total time spent is greater than 50% in coordination of care (as documented) at patient's floor/unit and/or counseling patient: Coding Level of Care Code 10587 Subseq Hosp Care Lvl 2 Diagnoses Calculus of proximal right ureter N20.1 Hypertension I10 CAD (coronary artery disease) I25.119 Associated angina: with unspecified angina Coronary Disease-Associated Artery/Lesion type: unspecified vessel or lesion type [place] vs. transplanted heart: [place] heart Time Spent (min) 35 (1) CAD (coronary artery disease) Associated angina: with unspecified angina Coronary Disease-Associated Artery/Lesion type: unspecified vessel or lesion type [place] vs. transplanted heart: [place] heart Qualified Code(s): I25.119 - Atherosclerotic heart disease of [place] coronary artery with unspecified angina pectoris
--- NOTE | 2021-03-11 11:56 | Anesthesiology Progress Note ---
Date of Service March 11, 2021 Anesthesia Post Procedure Vital Signs Vital Signs: Temp Pulse Pulse Pulse Resp BP BP 03/11/21 11:55 77 17 131/71 03/11/21 11:45 85 13 125/62 03/11/21 11:35 83 12 129/70 03/11/21 11:27 36.3 C L 90 14 125/77 03/11/21 10:45 36.6 C 72 20 166/81 H 03/11/21 09:45 36.9 C 61 18 164/82 H 03/11/21 09:38 78 18 159/79 H 03/11/21 09:28 36.7 C 76 20 163/79 H 03/11/21 09:01 20 03/11/21 08:08 61 18 161/71 H 03/11/21 05:35 66 03/11/21 03:22 58 L 03/11/21 02:47 55 L 03/11/21 02:00 36.6 C 51 L 16 191/78 H Pulse Ox 03/11/21 11:55 95 03/11/21 11:45 99 03/11/21 11:35 98 03/11/21 11:27 96 03/11/21 10:45 97 03/11/21 09:45 96 03/11/21 09:38 97 03/11/21 09:28 96 03/11/21 09:01 03/11/21 08:08 97 03/11/21 05:35 97 03/11/21 03:22 92 03/11/21 02:47 96 03/11/21 02:00 94 Pain Intensity Right Abdomen: Pain Intensity: 7 Transfer of Care Handoff Completed per policy Notes Mental Status: alert / awake / arousable and participated in evaluation Patient Amnestic to Procedure: Yes Nausea / Vomiting: adequately controlled Pain: adequately controlled Airway Patency, RR, SpO2: stable & adequate BP & HR: stable & adequate Hydration State: stable & adequate Anesthetic Complications: no major complications apparent and Pt Satisfied with anesthetic care
--- NOTE | 2021-03-11 12:26 | Fluoroscopy Report ---
[place] KUB CLINICAL HISTORY: Right ureteral stent placement. COMPARISON STUDY: CT of the abdomen and pelvis July or 2021. KUB March 11, 2021. FLUOROSCOPY TIME: 3 seconds. FLUOROSCOPIC IMAGES: 3 FINDINGS: Fluoroscopy was provided during placement of a right ureteral stent. Proximal aspect of ezekiel nt projects over the right renal pelvis. IMPRESSION: Fluoroscopy provided during right ureteral stent placement. ACT 112: Negative or not required by law. Electronically signed by: Rohith De La Garza M.D. 03/11/2021 12:25 PM
[2021-03-11] MEDS ORDERED: PRAVASTATIN SOD 40 MG TAB PO SCH (21:00)
[2021-03-12] MEDS: LEVOTHYROXINE SODIUM 50 MCG TABLET PO SCH (06:00)
--- NOTE | 2021-03-12 07:37 | Urology Progress Note ---
Date of Service March 12, 2021 Assessment & Plan (1) Calculus of proximal right ureter: Plan: - Pt POD#1 s/p cystoscopy and right stent placement with Dr. Chan - Doing well, progressing as expected - Afebrile, no new labs this AM, creatinine and WBC were within normal limits on admission - Tolerating right ureteral stent with minimal bother, has not utilized pain medication - Okay to d/c from perspective when medically stable - Recommend d/c with course of Tamsulosin, prn Pyridium and prn pain medication for stent management - Expected clinical course reviewed, all questions answered - Will arrange outpatient follow-up with our service Admission and Anticipated Discharge Date Admission Date: March 11, 2021 Supervising Physician Co-Signing Physician Notes I have discussed Mr. Gallo's case with YI Pat and agree with the above documentation. Subjective Patient seen this morning at bedside. He is awake, alert and sitting up at the side of the bed. No acute issues overnight. Overall feeling well, hoping to go home today. Reports mild right flank pain during urination then subsides. Reports pain is very tolerable and he has not utilized prn pain medication. Voiding without difficulty, no dysuria, hematuria post op but now clearing. No nausea or vomiting. No fever or chills. Review of Systems Constitutional: as per Subjective / HPI Gastrointestinal: as per Subjective / HPI Genitourinary: + as per Subjective / HPI Physical Exam Constitutional: well developed, well nourished and + obese; no acute distress and not ill appearing Respiratory: normal respiratory effort and able to speak in complete sentences; no respiratory distress and no labored breathing Cardiovascular: Extremities: no pedal edema Gastrointestinal (Abdomen): Inspection/Auscultation: abdomen normal to inspection; abdomen not distended Neurologic: moves all extremities and awake Psychiatric: Orientation: alert and oriented x 3 Genitourinary: no CVA tenderness Results & Data ([facility]) Vital Signs (Past 12 Hours) Vital Signs Temp Pulse Resp BP Pulse Ox Pulse Ox 03/12/21 07:14 36.9 C 55 L 18 169/79 H 94 03/12/21 04:05 37 C 58 L 16 132/61 95 03/11/21 21:21 93 03/11/21 21:18 36.7 C 55 L 14 152/55 H 93 PG Care Time/CCT Total # of Minutes Spent Total Time Spent with Patient: Total time spent is greater than 50% in coordination of care (as documented) at patient's floor/unit and/or counseling patient: Coding Level of Care Code 27260 Subseq Hosp Care Lvl 2 Diagnoses Calculus of proximal right ureter N20.1
[2021-03-12] MEDS ORDERED: FUROSEMIDE 20 MG TAB PO SCH (09:00)
[2021-03-12] MEDS: amLODIPine BESYLATE 5 MG TAB PO SCH (09:17)
[2021-03-12] MEDS: ASPIRIN 81 MG ECTAB PO SCH (09:17)
[2021-03-12] MEDS: FLUTICASONE/VILANTEROL 100/25MCG 14 PUFFS/INHALER INH SCH (09:17)
[2021-03-12] MEDS: CEROVITE ADV FORMULA TAB PO SCH (09:18)
[2021-03-12] MEDS: HEPARIN SOD 5,000 UNIT/0.5 ML VIAL SQ SCH (09:18)
[2021-03-12] MEDS: PANTOprazole 40 MG TAB PO SCH (09:18)
[2021-03-12] MEDS: LOSARTAN POTASSIUM 50 MG TAB PO SCH (09:18)
[2021-03-12] MEDS: SPIRONOLACTONE 12.5 MG TAB PO SCH (09:18)
--- NOTE | 2021-03-12 10:23 | Discharge Summary ---
Date of Service March 12, 2021 Admission HPI Per Admitting Provider 75 y/o M w/ PMHx of HTN, HLD, CAD s/p CABGx3, pAF, HFpEF, GERD, Martinez's, hypothyroidism, Paget's, gout, BPH, recurrent kidney stones who presents w/ known right ureteral stone. He was sent home from [facility] ED on 03/09/21, but returned after not being able to set up a soon enough appointment w/ urology. He had not yet filled his pain medication prescription. Initial pain was 03/08/21 nighttime, went to [facility] ED. Earlier, pain was 7-8/10 waxing and waning, somewhat relieved by walking. Currently pain is 1/10. Pain is at R side/flank, described as dull stabbing. No radiation. Some diaphoresis. +N, no vomiting. Follows Dr. Perez [facility] urology. Has had covid vaccines + booster. Principal Diagnosis ureteral stone Discharge Exam The patient is awake, alert and oriented 3, well developed and well nourished, normocephalic and atraumatic, lying in bed and in no acute distress. HEENT--PERRL, EOMI, mucous membranes and oropharynx mildly dry Neck--supple. No JVD. No bruits. Thyroid normal, trachea midline, no adenopathy. Heart--normal S1 and S2. No murmurs, rubs or gallops. Lungs--clear bilaterally, no respiratory distress, no accessory muscle use. Abdomen--normal bowel sounds and soft. Mild epigastric and left sided abdominal pain Extremities--no cyanosis or clubbing. No edema. Dermatologic--normal skin turgor, normal color, no abnormal lymph nodes, no rash. Neurologic--cranial nerves II through XII grossly intact. Rheumatologic--normal range of motion. Psychiatric--normal affect. Discharge Data Allergies Allergy/AdvReac Type Severity Reaction Status Date / Time propofol AdvReac Severe EXTREME Verified 03/11/21 07:38 AGITATION Consultations 03/11/21 03:30 ED Decision to Admit Stat 03/11/21 08:32 Consult Urology Routine Procedures Performed Operation Date: 03/11/21 08:20 Actual Procedures p Cystoscopy, Right Stent Placment(Right) - Jamarcus Parikh MD Ordered Studies 03/11/21 11:00 FL KUB Routine Hospital Course (1) Calculus of proximal right ureter: Patient has presented to the emergency department a couple of times recently with complaints of right flank pain. CT abdomen and pelvis showed evidence of a 5 mm obstructing stone with hydronephrosis on the right. Urology has been consulted. He is day 2 post stent placement and cystoscopy he will be discharged to follow up with Urology Flomax, Pyridium (2) Hypertension: Blood pressure 169/79 Continue home medications (3) CAD (coronary artery disease): Continue statin Total Time Total Time Spent Total Time Spent (In Minutes): 35 Discharge Plan Discharge Items Patient Disposition: Home - Self-Care Reason For Visit: URETERAL STONE Discharge Diagnosis: ureteral stone-post cystoscopy and stent placement Condition on Discharge: Good Activity: Resume your previous activity Non-emergency contact: Primary Care Provider and Urologist Call non-emergency contact if: you have any medication questions and your symptoms worsen Follow-up/Referrals: Grace Garcia CRNP [Primary Care Provider] - Jamarcus Parikh MD [Physician] - (DR PARIKH'S NURSE WILL CALL THE PATIENT TO SCHEDULE A HOSPITAL F/U VISIT.) Diet: Regular Addtl Attending Provider Instructions: please make appointment to follow up with your Urologist Pending Studies at Discharge: No Stand-Alone Forms: My [employer], Smoking Cessation Medications and DC Order Prescriptions: New phenazopyridine [Pyridium] 100 mg tablet 100 mg PO TID Qty: 14 RF: 0 acetaminophen [Tylenol Extra Strength] 500 mg tablet 500 mg PO Q6H PRN (Reason: pain) Qty: 14 RF: 0 tamsulosin [Flomax] 0.4 mg capsule 0.4 mg PO DAILY Qty: 30 RF: 0 Continued albuterol sulfate 90 mcg/actuation HFA aerosol inhaler 2 puff inhalation Q6H PRN (Reason: shortness of breath or wheezing) Qty: 8.5 RF: 2 Centrum Silver Men 300-600-300 mcg tablet 1 tab PO QAM RF: 0 nitroglycerin 0.4 mg tablet, sublingual 0.4 mg SL Q5M PRN (Reason: chest pain) Qty: 25 RF: 3 aspirin [Aspirin Low Dose] 81 mg Tablet,Delayed Release (Dr/Ec) 81 mg PO QAM RF: 0 pravastatin 40 mg tablet 40 mg PO HS RF: 0 spironolactone 25 mg tablet 12.5 mg PO QAM RF: 0 amlodipine 10 mg tablet 10 mg PO QAM RF: 0 levothyroxine 50 mcg tablet 50 mcg PO QAM RF: 0 losartan 100 mg tablet 100 mg PO QAM RF: 0 furosemide 20 mg tablet 20 mg PO 5XWK RF: 0 Breo Ellipta 100-25 mcg/dose blister with device 1 inh inhalation QAM RF: 0 allopurinol 100 mg tablet 100 mg PO QAM RF: 0 pantoprazole 40 mg tablet,delayed release (DR/EC) 40 mg PO QAM RF: 0 Discontinued oxycodone-acetaminophen [Percocet] 5-325 mg tablet 1 tab PO Q4H PRN (Reason: pain) Qty: 20 RF: 0 Discharge Orders: Discharge Order (Routine); Ordered 03/12/21 Ordered By: Joaquin Crews Admission Data Admit Date/Time: 03/11/21 06:27 Attending Provider: Rene Randolph Admit Provider: Rene Randolph Primary Care Provider: Grace Garcia Other Providers: Rene Randolph ; Jignesh Glasgow Coding Level of Care Code D/C DAY MANAGEMENT >30 MINS Diagnoses Calculus of proximal right ureter N20.1 Hypertension I10 CAD (coronary artery disease) I25.119 Associated angina: with unspecified angina Coronary Disease-Associated Artery/Lesion type: unspecified vessel or lesion type [place] vs. transplanted heart: [place] heart Time Spent (min) 35
[2021-03-12] MEDS: LACTATED RINGER'S 1,000 ML IV SCH (11:04)
--- NOTE | 2021-03-13 11:24 | Billing Data ---
Date of Service March 11, 2021 Coding Level of Care Code 88298 Initial Inpt Care Lvl 3
== END 2021-03-12 12:55 | disposition home or self-care (01) ==
LOC: ED 01:57 → EDINP 06:27 → INTOOBSV 06:27 → 3N 09:38